=== PATIENT | male | born 1945 | race Caucasian/White ===

== ENCOUNTER 2020-01-24 17:30 | Inpatient (IN) | payer OTHER, MEDICARE ==
[2020-01-24] MEDS ORDERED: SODIUM CHLORIDE 0.9% 1,000 ML IV STA (17:56)
[2020-01-24] MEDS ORDERED: ONDANSETRON 4 MG/2 ML VIAL IVP STA (17:56)
[2020-01-24 18:20] LABS: Basophils % (A) 0 %; Eosinophils # (A) 0.1 k/uL (0-0.7); Eosinophils % (A) 1 %; HCT 37.5 % (39.0-53.0); HGB 12.5 gm/dL (13.0-17.5); Lymphocytes # (A) 1.2 k/uL (1.0-4.8); Lymphocytes % (A) 9 %; MCH 28.8 pg (25.0-35.0); MCHC 33.5 g/dL (31.0-37.0); MCV 86.1 fL (80.0-100.0); Mean Platelet Volume 8.6; Monocytes # (A) 0.4 k/uL (0-1.0); Monocytes % (A) 3 %; Neutrophils % (A) 86 %; Platelet Count 167 k/uL (150-450); RBC 4.35 m/uL (4.30-5.90); WBC 12.9 k/uL (3.8-10.6)
[2020-01-24 18:24] LABS: Amorphous Sediment,Urine Rare /hpf; Appearance,Urine Cloudy (Clear); Bacteria,Urine Rare /hpf; Bilirubin,Urine Negative (Negative); Blood,Urine Small (Negative); Color,Urine Light Yellow; Glucose,Urine (UA) Negative (Negative); Ketones,Urine Negative (Negative); Leukocyte Esterase,Urine Large (Negative); Mucus,Urine Rare /hpf; Nitrite,Urine Negative (Negative); Protein,Urine 1+ (Negative); RBC,Urine 7 /hpf (0-5); Specific Gravity,Urine 1.012 (1.001-1.035); Urobilinogen,Urine <2.0 mg/dL (<2.0); WBC,Urine 23 /hpf (0-5)
[2020-01-24 18:27] LABS: Albumin 4.2 g/dL (3.5-5.0); Calcium 8.4 mg/dL (8.4-10.2); Potassium 4.4 mmol/L (3.5-5.1); Total Bilirubin 0.2 mg/dL (0.2-1.3); Total Protein 7.3 g/dL (6.3-8.2)
--- NOTE | 2020-01-24 18:32 | XR ---
EXAMINATION TYPE: XR KUB DATE OF EXAM: 01/24/2020 COMPARISON: NONE HISTORY: Nausea and vomiting TECHNIQUE: 2 views upright FINDINGS: Bowel gas pattern is normal. There is no sign of intestinal obstruction or pneumoperitoneum . Fecal pattern is normal. There is no evidence of a mass. Sacroiliac joints appear normal. Bony pelv is intact. Lumbar spine appears intact. There are no pathologic calcifications over the kidneys. Lung bases appear clear. IMPRESSION: Nonacute abdomen.
--- NOTE | 2020-01-24 18:34 | ED ---
General Adult HPI - General Chief complaint: Nausea/Vomiting/Diarrhea Stated complaint: Chest pain Time Seen by Provider: 01/24/20 17:45 Source: patient, RN notes reviewed Mode of arrival: wheelchair Limitations: no limitations - History of Present Illness Initial comments: 74-year-old male with a past medical history of CAD, hyperlipidemia, hypertensio n presents to the emergency dept for a chief complaint of nausea vomiting diarrhea. Patient states this has been ongoing on and off for about 10 days. Patient states he had about 12 episodes of diarrhea last night. States he is not able to keep down any water or fluids. Patient actually denies any significant abdominal pain. Patient has no other complaints at this time including shortness of breath, chest pain, abdominal pain, headache, or visual changes. - Related Data Allergies Allergy/AdvReac Type Severity Reaction Status Date / Time adhesive Allergy Rash/Hives Verified 01/24/20 17:44 fluvastatin Allergy Nausea & Verified 01/24/20 17:44 Vomiting Influenza Virus Vaccines Allergy Unknown Verified 01/24/20 17:44 simvastatin [From Zocor] Allergy Nausea & Verified 01/24/20 17:44 Vomiting Review of Systems ROS Statement: Those systems with pertinent positive or pertinent negative responses have been documented in the HPI. ROS Other: All systems not noted in ROS Statement are negative. Past Medical History Past Medical History: Coronary Artery Disease (CAD), Hyperlipidemia, Hypertension History of Any Multi-Drug Resistant Organisms: None Reported Past Surgical History: Coronary Bypass/CABG, Joint Replacement Past Psychological History: PTSD Smoking Status: Former smoker Past Alcohol Use History: None Reported Past Drug Use History: None Reported General Exam Limitations: no limitations General appearance: alert, in no apparent distress Head exam: Present: atraumatic, normocephalic, normal inspection Eye exam: Present: normal appearance, PERRL, EOMI. Absent: scleral icterus, conjunctival injection, periorbital swelling ENT exam: Present: normal exam, mucous membranes moist Neck exam: Present: normal inspection, full ROM. Absent: tenderness, meningismus, lymphadenopathy Respiratory exam: Present: normal lung sounds bilaterally. Absent: respiratory distress, wheezes, rales, rhonchi, stridor Cardiovascular Exam: Present: regular rate, normal rhythm, normal heart sounds. Absent: systolic murmur, diastolic murmur, rubs, gallop, clicks GI/Abdominal exam: Present: soft, normal bowel sounds. Absent: distended, tenderness, guarding, rebound, rigid Neurological exam: Present: alert Course Vital Signs 01/24/20 17:39 Temperature 98.5 F Pulse Rate 100 Respiratory 18 Rate Blood Pressure 103/72 O2 Sat by Pulse 98 Oximetry Medical Decision Making - Medical Decision Making Vitals are stable. Patient is well appearing. CBC is unremarkable however CMP does reveal acute renal failure with a creatinine of 10.83, BUN 112, GFR 4. Lipase 448. Urine and stool culture pending. Patient will be gently rehydrated. Nephrology will be consulted. Patient will be kept in the hospital for further management. - Lab Data Result diagrams: 01/24/20 18:00 01/24/20 18:00 Lab Results 01/24/20 01/24/20 01/24/20 Range/Units 18:00 18:00 18:00 WBC 12.9 H (3.8-10.6) k/uL RBC 4.35 (4.30-5.90) m/uL Hgb 12.5 L (13.0-17.5) gm/dL Hct 37.5 L (39.0-53.0) % MCV 86.1 (80.0-100.0) fL MCH 28.8 (25.0-35.0) pg MCHC 33.5 (31.0-37.0) g/dL RDW 14.0 (11.5-15.5) % Plt Count 167 (150-450) k/uL Neutrophils % 86 % Lymphocytes % 9 % Monocytes % 3 % Eosinophils % 1 % Basophils % 0 % Neutrophils # 11.0 H (1.3-7.7) k/uL Lymphocytes # 1.2 (1.0-4.8) k/uL Monocytes # 0.4 (0-1.0) k/uL Eosinophils # 0.1 (0-0.7) k/uL Basophils # 0.0 (0-0.2) k/uL Sodium 139 (137-145) mmol/L Potassium 4.4 (3.5-5.1) mmol/L Chloride 106 (98-107) mmol/L Carbon Dioxide 13 L (22-30) mmol/L Anion Gap 20 mmol/L BUN 112 H* (9-20) mg/dL Creatinine 10.83 H* (0.66-1.25) mg/dL Est GFR (CKD-EPI)AfAm 5 (>60 ml/min/1.73 sqM) Est GFR (CKD-EPI)NonAf 4 (>60 ml/min/1.73 sqM) Glucose 121 H (74-99) mg/dL Plasma Lactic Acid Aroldo (0.7-2.0) mmol/L Calcium 8.4 (8.4-10.2) mg/dL Total Bilirubin 0.2 (0.2-1.3) mg/dL AST 17 (17-59) U/L ALT 14 (4-49) U/L Alkaline Phosphatase 86 (38-126) U/L Total Protein 7.3 (6.3-8.2) g/dL Albumin 4.2 (3.5-5.0) g/dL Amylase 68 (30-110) U/L Lipase 448 H (23-300) U/L Urine Color Light Yellow Urine Appearance Cloudy (Clear) Urine pH 5.0 (5.0-8.0) Ur Specific Fowler 1.012 (1.001-1.035) Urine Protein 1+ H (Negative) Urine Glucose (UA) Negative (Negative) Urine Ketones Negative (Negative) Urine Blood Small H (Negative) Urine Nitrite Negative (Negative) Urine Bilirubin Negative (Negative) Urine Urobilinogen <2.0 (<2.0) mg/dL Ur Leukocyte Esterase Large H (Negative) Urine RBC 7 H (0-5) /hpf Urine WBC 23 H (0-5) /hpf Amorphous Sediment Rare H (None) /hpf Urine Bacteria Rare H (None) /hpf Urine Mucus Rare H (None) /hpf 01/24/20 Range/Units 18:00 WBC (3.8-10.6) k/uL RBC (4.30-5.90) m/uL Hgb (13.0-17.5) gm/dL Hct (39.0-53.0) % MCV (80.0-100.0) fL MCH (25.0-35.0) pg MCHC (31.0-37.0) g/dL RDW (11.5-15.5) % Plt Count (150-450) k/uL Neutrophils % % Lymphocytes % % Monocytes % % Eosinophils % % Basophils % % Neutrophils # (1.3-7.7) k/uL Lymphocytes # (1.0-4.8) k/uL Monocytes # (0-1.0) k/uL Eosinophils # (0-0.7) k/uL Basophils # (0-0.2) k/uL Sodium (137-145) mmol/L Potassium (3.5-5.1) mmol/L Chloride (98-107) mmol/L Carbon Dioxide (22-30) mmol/L Anion Gap mmol/L BUN (9-20) mg/dL Creatinine (0.66-1.25) mg/dL Est GFR (CKD-EPI)AfAm (>60 ml/min/1.73 sqM) Est GFR (CKD-EPI)NonAf (>60 ml/min/1.73 sqM) Glucose (74-99) mg/dL Plasma Lactic Acid Aroldo 1.0 (0.7-2.0) mmol/L Calcium (8.4-10.2) mg/dL Total Bilirubin (0.2-1.3) mg/dL AST (17-59) U/L ALT (4-49) U/L Alkaline Phosphatase (38-126) U/L Total Protein (6.3-8.2) g/dL Albumin (3.5-5.0) g/dL Amylase (30-110) U/L Lipase (23-300) U/L Urine Color Urine Appearance (Clear) Urine pH (5.0-8.0) Ur Specific Fowler (1.001-1.035) Urine Protein (Negative) Urine Glucose (UA) (Negative) Urine Ketones (Negative) Urine Blood (Negative) Urine Nitrite (Negative) Urine Bilirubin (Negative) Urine Urobilinogen (<2.0) mg/dL Ur Leukocyte Esterase (Negative) Urine RBC (0-5) /hpf Urine WBC (0-5) /hpf Amorphous Sediment (None) /hpf Urine Bacteria (None) /hpf Urine Mucus (None) /hpf Disposition Clinical Impression: Acute renal failure, Elevated lipase, Nausea vomiting and diarrhea Disposition: ADMITTED IP TO THIS HOSP Is patient prescribed a controlled substance at d/c from ED?: No Referrals: Hemanth Christian DO [Primary Care Provider] - 1-2 days Time of Disposition: 19:06
[2020-01-24] MEDS ORDERED: NALOXONE 0.4 MG/ML 1 ML VIAL IV PRN (19:06)
[2020-01-24] MEDS ORDERED: ONDANSETRON 4 MG/2 ML VIAL IVP PRN (19:06)
[2020-01-24] MEDS ORDERED: SODIUM CHLORIDE 0.9% 1,000 ML IV SCH (19:15)
[2020-01-25] MEDS ORDERED: ONDANSETRON 4 MG/2 ML VIAL ONE (01:08)
[2020-01-25] MEDS ORDERED: SODIUM CHLORIDE 0.9% 1,000 ML BAG ONE (01:08)
--- NOTE | 2020-01-25 06:26 | P.HPIM ---
History of Present Illness H&P Date: 01/24/20 Patient is a 74-year-old male with a PMH of coronary artery disease, hypertension, and hyperlipidemia who presented to the ED with complaints of ongoing persistent nausea, vomiting, and diarrhea. The patient reports that for the past 1-2 weeks, he has had the above symptoms and they have been gradually worsening. He reports having 5-6 bowel movements in the past 24 hours with 2-3 episodes of nonbloody and nonbilious emesis. He reports that due to his symptoms, he has been unable to drink or eat much and feels as though he is getting dehydrated. He notes continued production of urine without any changes. Further denied abdominal pain, sick contacts, recent travel. Denied chest pain, shortness of breath, fever, chills, or cough. The patient underwent an extensive evaluation in the emergency room with KUB x-ray unremarkable, laboratory evaluation showing WBC 12.9, hemoglobin 12.5, sodium 139, potassium 4.4, BUN 112, creatinine 10.83, lipase 448, C. diff negative, and CO2 13. Review of Systems Pertinent positives and negatives as discussed in HPI, a complete review of systems was performed and all other systems are negative. Past Medical History Past Medical History: Coronary Artery Disease (CAD), Hyperlipidemia, Hypertension History of Any Multi-Drug Resistant Organisms: None Reported Past Surgical History: Coronary Bypass/CABG, Joint Replacement Additional Past Surgical History / Comment(s): CABG JUN 1991 Past Psychological History: Depression, PTSD Additional Psychological History / Comment(s): situational depression d/t current health and going through chemo Smoking Status: Former smoker Past Alcohol Use History: None Reported Past Drug Use History: None Reported Medications and Allergies Home Medications Medication Instructions Recorded Confirmed Type Aspirin EC [Ecotrin Low Dose] 81 mg PO BID 01/24/20 01/24/20 History Atorvastatin [Lipitor] 10 mg PO HS 01/24/20 01/24/20 History Carvedilol [Coreg] 12.5 mg PO DAILY 01/24/20 01/24/20 History Carvedilol [Coreg] 25 mg PO HS 01/24/20 01/24/20 History Isosorbide Mononitrate ER [Imdur] 60 mg PO DAILY 01/24/20 01/24/20 History Mirtazapine [Remeron] 45 mg PO HS 01/24/20 01/24/20 History clonazePAM 1 mg PO BID PRN 01/24/20 01/24/20 History traZODone HCL 150 mg PO HS 01/24/20 01/24/20 History Allergies Allergy/AdvReac Type Severity Reaction Status Date / Time adhesive Allergy Rash/Hives Verified 01/24/20 20:00 fluvastatin Allergy Nausea & Verified 01/24/20 20:00 Vomiting Influenza Virus Vaccines Allergy Unknown Verified 01/24/20 20:00 simvastatin [From Zocor] Allergy Nausea & Verified 01/24/20 20:00 Vomiting Physical Exam Vitals: Vital Signs Temp Pulse Pulse Resp BP BP Pulse Ox 01/24/20 22:28 18 01/24/20 22:07 98.6 F 82 18 135/72 97 01/24/20 21:00 98.2 F 70 18 131/75 96 01/24/20 19:14 73 18 120/82 96 01/24/20 17:39 98.5 F 100 18 103/72 98 Intake and Output 01/24/20 01/24/20 01/24/20 06:59 14:59 22:59 Other: # Bowel Movements 1 Weight 67.132 kg General: non toxic, no distress, appears at stated age, normal weight Derm: no unusual rashes/lesions no unusual ecchymoses, warm, dry Head: atraumatic, normocephalic, symmetric Eyes: EOMI, no lid lag, anicteric sclera, pupils equal round reactive to light ENT: Nose and ears atraumatic, no thrush, no pharyngeal erythema Neck: No thyromegaly, no cervical lymphadenopathy, trachea midline, supple Mouth: no lip lesion, mucus membranes moist Cardiovascular: S1S2 reg, no murmur, positive posterior tibial pulse bilateral, no edema, capillary refill less than 2 seconds Lungs: CTA bilateral, no rhonchi, no rales , no accessory muscle use Abdominal: soft, nontender to palpation, no guarding, no appreciable organomegaly, normal bowel sounds Ext: no gross muscle atrophy, muscle strength 5 out of 5 in all 4 extremities grossly, no contractures, Neuro: CN II-XI grossly intact, light touch intact all 4 extremities, finger to nose within normal limits, Psych: Alert, oriented, appropriate affect Results CBC & Chem 7: 01/24/20 18:00 01/24/20 18:00 Labs: Abnormal Lab Results - Last 24 Hours (Table) 01/24/20 01/24/20 01/24/20 Range/Units 18:00 18:00 18:00 WBC 12.9 H (3.8-10.6) k/uL Hgb 12.5 L (13.0-17.5) gm/dL Hct 37.5 L (39.0-53.0) % Neutrophils # 11.0 H (1.3-7.7) k/uL Carbon Dioxide 13 L (22-30) mmol/L BUN 112 H* (9-20) mg/dL Creatinine 10.83 H* (0.66-1.25) mg/dL Glucose 121 H (74-99) mg/dL Lipase 448 H (23-300) U/L Urine Protein 1+ H (Negative) Urine Blood Small H (Negative) Ur Leukocyte Esterase Large H (Negative) Urine RBC 7 H (0-5) /hpf Urine WBC 23 H (0-5) /hpf Amorphous Sediment Rare H (None) /hpf Urine Bacteria Rare H (None) /hpf Urine Mucus Rare H (None) /hpf Microbiology - Last 24 Hours (Table) 01/24/20 18:00 Urine Culture - Preliminary Urine,Voided Assessment and Plan Plan: Acute kidney injury, likely secondary to dehydration -Consult nephrology -Continue with IV fluids -Monitor BMP Persistent nausea, vomiting, diarrhea -Possibly secondary to gastroenteritis -Consult GI due to prolonged course -Antiemetics -Clear liquid diet for now Metabolic acidosis -Likely due to ARF -Monitor BMP for now Chronic conditions: CAD, hypertension, hyperlipidemia -Continue home meds DVT prophylaxis -Heparin subq The patient is admitted with an anticipated greater than 2 midnight stay for evaluation of ALINA CODE STATUS: No Code with instructions Discussed with: Patient Anticipated discharge date: 3-[address]: Home A total of 35 minutes was spent on the care of this complex patient more than 50% of the time was spent in counseling and care coordination.
--- NOTE | 2020-01-25 06:27 | P.PN ---
Progress Note - Text Progress Note Date: 01/25/20 Advanced Care Planning Active Diagnosis: Acute kidney injury Persons present: Patient Summary: discussed the patients goals of care and accessory detail. The patient noted that he has previously discussed his wishes with his and other family members, and that at his age, he does not wish to undergo any heroic measures if his health deteriorates significantly. He notes that in the event of cardiac arrest, he does not wish to undergo CPR or be placed on life support with the ventilator. He notes that he may consider other forms of life support electively such as dialysis or feeding tubes if need be. Discussed the different forms of light support with the patient. Will make the patient no code with instructions. Time spent: Total time spent face to face in education and discussion directly related to advanced care plannin minutes
[2020-01-25] MEDS ORDERED: SODIUM CHLORIDE 0.9% 1,000 ML IV ONE (07:28)
[2020-01-25] MEDS ORDERED: DEXTROSE 5% IN WATER 100 ML with AMIODARONE 150 MG IV ONE ×2 (07:37→07:40)
[2020-01-25] MEDS ORDERED: AMIODARONE 360 MG in DEXTROSE 5% IN WATER 200 ML IV ONE ×2 (07:40)
[2020-01-25 07:49] LABS: HCT 35.7 % (39.0-53.0); HGB 11.7 gm/dL (13.0-17.5); MCH 28.8 pg (25.0-35.0); MCHC 32.7 g/dL (31.0-37.0); Mean Platelet Volume 8.2; Platelet Count 140 k/uL (150-450); RBC 4.05 m/uL (4.30-5.90); WBC 11.3 k/uL (3.8-10.6)
[2020-01-25 08:01] LABS: Calcium 8.2 mg/dL (8.4-10.2); Magnesium 1.9 mg/dL (1.6-2.3)
[2020-01-25 08:01] LABS: Glucose,Whole Blood 111 mg/dL (75-99)
[2020-01-25] MEDS ORDERED: PROCHLORPERAZINE SUPPOSITORY 25 MG SUPP RECTAL PRN (08:12)
[2020-01-25] MEDS ORDERED: MAGNESIUM SULFATE-D5W PMX 1 GM in DEXTROSE/WATER 1 100ML.BAG IVPB ONE (08:20)
[2020-01-25] MEDS: ONDANSETRON 4 MG/2 ML VIAL IVP SCH (08:27)
[2020-01-25] MEDS ORDERED: ASPIRIN 81 MG PO SCH (09:00)
[2020-01-25] MEDS ORDERED: CARVEDILOL 12.5 MG TAB PO SCH (09:00)
[2020-01-25 09:20] LABS: Troponin I 0.049 ng/mL (0.000-0.034)
--- NOTE | 2020-01-25 10:19 | P.NPCON ---
History of Present Illness - Reason for Consult acute renal failure - History of Present Illness Reason for consultation: Acute kidney injury History of present illness: Patient is a 74-year-old male seen in renal consultation for acute kidney injury. Creatinine was 10.8 on admission and is 10.5 with this morning. Unknown baseline renal function. Patient denies any history of kidney disease. He is currently awake and alert. Patient presented to the hospital with vomiting and diarrhea going on for the last 10 days. Patient states he's been having multiple episodes of vomiting and diarrhea. Denies melena or hematochezia. He has been voiding. Denies hematuria or dysuria. Denies regular use of nonsteroidals. Patient states his is ill and is maintained on chemotherapy. He denies any travel. C. diff negative. Blood pressure has been fairly stable. He is not on any vasopressors. He is currently receiving third liter of normal saline bolus. He is also maintained on normal saline at 1 25 mL an hour for maintenance fluids. Earlier this morning he had a short run of V. tach which spontaneously resolved. Vital signs are stable. General: The patient appeared well nourished and normally developed. HEENT: Head exam is unremarkable. Neck is without jugular venous distension. LUNGS: Lungs are clear to auscultation and percussion. Breath sounds decreased. HEART: Rate and Rhythm are regular. ABDOMEN: Soft, nontender. No distention noted. EXTREMITITES: No clubbing, cyanosis, or edema. Past Medical History Past Medical History: Coronary Artery Disease (CAD), Hyperlipidemia, Hypertension History of Any Multi-Drug Resistant Organisms: None Reported Past Surgical History: Coronary Bypass/CABG, Joint Replacement Additional Past Surgical History / Comment(s): CABG JUN 1991 Past Psychological History: Depression, PTSD Additional Psychological History / Comment(s): situational depression d/t current health and going through chemo Smoking Status: Former smoker Past Alcohol Use History: None Reported Past Drug Use History: None Reported Medications and Allergies Home Medications Medication Instructions Recorded Confirmed Type Aspirin EC [Ecotrin Low Dose] 81 mg PO BID 01/24/20 01/24/20 History Atorvastatin [Lipitor] 10 mg PO HS 01/24/20 01/24/20 History Carvedilol [Coreg] 12.5 mg PO DAILY 01/24/20 01/24/20 History Carvedilol [Coreg] 25 mg PO HS 01/24/20 01/24/20 History Isosorbide Mononitrate ER [Imdur] 60 mg PO DAILY 01/24/20 01/24/20 History Mirtazapine [Remeron] 45 mg PO HS 01/24/20 01/24/20 History clonazePAM 1 mg PO BID PRN 01/24/20 01/24/20 History traZODone HCL 150 mg PO HS 01/24/20 01/24/20 History Allergies Allergy/AdvReac Type Severity Reaction Status Date / Time adhesive Allergy Rash/Hives Verified 01/24/20 20:00 fluvastatin Allergy Nausea & Verified 01/24/20 20:00 Vomiting Influenza Virus Vaccines Allergy Unknown Verified 01/24/20 20:00 simvastatin [From Zocor] Allergy Nausea & Verified 01/24/20 20:00 Vomiting Physical Exam Vitals: Vital Signs Temp Pulse Pulse Resp BP BP Pulse Ox 01/25/20 07:00 98.1 F 167 H 18 99/65 96 01/25/20 04:00 18 01/25/20 02:14 98.2 F 74 18 132/75 96 01/24/20 22:28 18 01/24/20 22:07 98.6 F 82 18 135/72 97 01/24/20 21:00 98.2 F 70 18 131/75 96 01/24/20 19:14 73 18 120/82 96 01/24/20 17:39 98.5 F 100 18 103/72 98 Intake and Output 01/24/20 01/25/20 01/25/20 22:59 06:59 14:59 Other: # Voids 1 # Bowel Movements 1 5 Weight 67.132 kg Results - Lab Results Most recent lab results Calcium 8.2 mg/dL (8.4-10.2) L 01/25/20 06:54 Magnesium 1.9 mg/dL (1.6-2.3) 01/25/20 06:54 01/25/20 06:54 01/25/20 06:54 Assessment and Plan Plan: Assessment: 1. Acute kidney injury secondary to ATN secondary to severe intravascular volume depletion secondary to vomiting and diarrhea. Creatinine 10.83 on admission and is 10.58 today. 2. Metabolic acidosis secondary to acute kidney injury and GI losses. 3. Nausea vomiting and diarrhea. Possibly gastroenteritis. Patient states he does not want to undergo endoscopy. GI consulted. Plan: Discontinue normal saline. Start isotonic bicarbonate drip to be run at 100 mL an hour. Strict I's and O's. Check renal ultrasound. Continue to assess daily for need for renal replacement therapy. Thank you for the consultation. I will continue to follow the patient with you during his hospital stay.
[2020-01-25] MEDS: DEXTROSE 5% IN WATER 1,000 ML with SODIUM BICARB (1 MEQ/ML) 150 ML IV SCH (12:14)
[2020-01-25] MEDS: PANTOPRAZOLE 40 MG/10 ML VIAL IVP SCH ×2 (12:14→20:36)
[2020-01-25] MEDS: HEPARIN SODIUM,PORCINE 5,000 UNIT/ML 1 ML VIAL SQ SCH ×2 (12:14→16:27)
[2020-01-25] MEDS: ISOSORBIDE MONONITRATE ER 60 MG TAB.ER.24H PO SCH (12:24)
[2020-01-25] MEDS: clonazePAM 1 MG TAB PO PRN (12:32)
[2020-01-25] MEDS: PROCHLORPERAZINE 5 MG TAB PO PRN ×2 (12:51→20:36)
[2020-01-25] MEDS ORDERED: AMIODARONE 300 MG in DEXTROSE 5% IN WATER 250 ML IV SCH ×2 (13:42)
--- NOTE | 2020-01-25 13:42 | US ---
EXAMINATION TYPE: US kidneys/renal and bladder DATE OF EXAM: 01/25/2020 COMPARISON: NONE CLINICAL HISTORY: 74-year-old male ALINA TECHNIQUE: Multiple sonographic images of the kidneys and bladder are obtained. FINDINGS: EXAM MEASUREMENTS: Right Kidney: 10.3 x 4.3 x 4.5 cm Left Kidney: 11.2 x 5.3 x 5.0 cm Right Kidney: Multiple echogenic areas with shadowing scattered throughout the pyramids Left Kidney: Multiple echogenic areas with shadowing scattered throughout the pyramids Cyst medial= 2.9 x 2.7 x 2.6 cm No hydronephrosis seen on either side. Bladder: No gross abnormality. Enlarged prostate gland at 5.5 x 5.0 cm. Bilateral Jets seen: No IMPRESSION: 1. No hydronephrosis. 2. 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 Differential considerations include hyperparathyroi dism, medullary sponge kidney, type I RTA, sarcoidosis, hyperthyroidism/hypothyroidism, and other pat hologic hypercalcemic or hypercalcemic states. 3. Prostatomegaly at 5.5 x 5.0 cm.
--- NOTE | 2020-01-25 14:23 | CONS ---
CONSULTATION Mr. Stiles is a 74-year-old male with known history of hyperlipidemia, history of coronary artery disease status post coronary artery bypass grafting over 15 years ago, who has been seen by Dr. Deanne Parr in the past but not for the last few years, who presented with nausea and vomiting and diarrhea, going on for about a week, came in and was found to have evidence of severe renal failure. Cardiology consultation was requested today because of arrhythmia. The patient did not feel his arrhythmia. According to him, he has done well from the cardiac standpoint, has not been active recently, but denying any chest pain or change in his breathing. He denies any dizziness or palpitation. He did not feel any arrhythmia this morning. No PND. No orthopnea. No peripheral edema. His arrhythmia resolved without any cardioversion. His coronary risk factors include hypertension, hyperlipidemia. He is on Lipitor 10 mg daily, Coreg 25 at night 12.5 in the morning, isosorbide mononitrate, Remeron, trazodone, and aspirin once a day. REVIEW OF SYSTEMS: RESPIRATORY SYSTEM: He denies any cough or fever. He denies any history of documented asthma, emphysema, bronchitis. GI SYSTEM: He has the nausea and the vomiting and the diarrhea. He has no GI bleeding. SYSTEM: No dysuria or hematuria. NERVOUS SYSTEM: No stroke or seizure. He denies any prior myocardial infarction, prior to his coronary bypass grafting that was done in [place]. PHYSICAL EXAMINATION: A 74-year-old male, alert, oriented, in no apparent distress. Heart rate in the 70s. Blood pressure 130/70. HEAD: Normocephalic. EYES: Sclerae nonicteric. NECK: Good upstroke. no bruit, no jugular venous distention. LUNGS: Clear to auscultation. HEART: Regular rate and rhythm, S1, S2. No S3 with systolic murmur at the base. No diastolic murmur, no rub. ABDOMEN: Soft, nontender, positive bowel sounds, no organomegaly. EXTREMITIES: No edema, intact pulses. LAB DATA: Revealed a BUN of 112, creatinine of 10.83, potassium 4.4, bicarb of 13, hemoglobin of 12.5. Troponin 0.049. EKG showed tachycardia, appears to be AV yamilet reentrant tachycardia with retrograde P waves and subsequently converted to sinus mechanism. IMPRESSION: 1. 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 2. Acute kidney injury, most likely related to severe intravascular depletion with metabolic acidosis. 3. Status post coronary artery bypass grafting. Patient denies any recent anginal pain. 4. Hyperlipidemia. 5. Hypertension. RECOMMENDATION: I have discussed with the patient the option of obtaining echocardiogram. He does not want to have any testing done, not even an echocardiogram. I will continue the present therapy. I believe that the elevation of his troponin most likely is related to his renal failure. Will further evaluate the symptoms and guide his treatment at this time. The option is quite limited. The patient declined any further workup. Thank you for this consult. Will follow with you. MMODL / IJN: [id number] /
[2020-01-25] MEDS: CARVEDILOL 12.5 MG TAB PO SCH (16:30)
--- NOTE | 2020-01-25 16:47 | P.PN ---
Subjective Progress Note Date: 01/25/20 Principal diagnosis: SVT Received a call from nursing regarding hypotension and elevated heart rate. EKG was performed and patient was given 1 L bolus. EKG appeared to show wide- complex tachycardia. Patient converted back to sinus rhythm while being transferred to the ICU. Amiodarone was initially ordered but was discontinued after patient converted back to sinus rhythm. Patient denied any symptoms at that time. He denied any dizziness, chest pain, shortness of breath or palpitations. Objective - Vital Signs Vital signs: Vital Signs Temp 98.6 F 01/25/20 12:00 Pulse 68 01/25/20 12:00 Resp 12 01/25/20 12:00 BP 139/84 01/25/20 12:00 Pulse Ox 98 01/25/20 12:00 Intake & Output 01/24/20 01/25/20 01/25/20 18:59 06:59 18:59 Intake Total 200 Output Total 450 Balance -250 Weight 67.132 kg 67.132 kg Intake: IV 200 Dextrose 5% in Water 1, 100 000 ml @ 100 mls/hr IV . [id number] JORGE with Sodium Bicarb (1 Meq/ml) 150 ml Rx#:[id number] Magnesium Sulfate-D5w Pmx 100 1 gm In Dextrose/Water 1 100ml.bag @ 100 mls/hr IVPB ONCE ONE Rx#: [id number] Output: Urine 150 Stool 300 Other: Voiding Method Toilet Urinal # Voids 1 1 # Bowel Movements 5 1 - Exam General: [non toxic, cachectic], [no distress], [appears at stated age] Derm: [warm], [dry] Head: [atraumatic], [normocephalic], [symmetric] Eyes: [EOMI], [no lid lag], [anicteric sclera] Mouth: [no lip lesion], [mucus membranes moist] Cardiovascular: [S1S2 reg], [no murmur], [positive DP pulse bilateral], Lungs: [CTA bilateral], [no rhonchi, no rales] , [no accessory muscle use] Abdominal: [soft], [ nontender to palpation], [no guarding], [no appreciable organomegaly] Ext: [no gross muscle atrophy], [no edema], [no contractures] Neuro: [no focal neuro deficits] Psych: [Alert], [oriented], [appropriate affect] - Labs CBC & Chem 7: 01/25/20 06:54 01/25/20 06:54 Labs: Abnormal Lab Results - Last 24 Hours (Table) 01/24/20 01/24/20 01/24/20 Range/Units 18:00 18:00 18:00 WBC 12.9 H (3.8-10.6) k/uL RBC (4.30-5.90) m/uL Hgb 12.5 L (13.0-17.5) gm/dL Hct 37.5 L (39.0-53.0) % Plt Count (150-450) k/uL Neutrophils # 11.0 H (1.3-7.7) k/uL Chloride (98-107) mmol/L Carbon Dioxide 13 L (22-30) mmol/L BUN 112 H* (9-20) mg/dL Creatinine 10.83 H* (0.66-1.25) mg/dL Glucose 121 H (74-99) mg/dL POC Glucose (mg/dL) (75-99) mg/dL Calcium (8.4-10.2) mg/dL Troponin I (0.000-0.034) ng/mL Lipase 448 H (23-300) U/L Urine Protein 1+ H (Negative) Urine Blood Small H (Negative) Ur Leukocyte Esterase Large H (Negative) Urine RBC 7 H (0-5) /hpf Urine WBC 23 H (0-5) /hpf Amorphous Sediment Rare H (None) /hpf Urine Bacteria Rare H (None) /hpf Urine Mucus Rare H (None) /hpf 01/25/20 01/25/20 01/25/20 Range/Units 06:54 06:54 06:54 WBC 11.3 H (3.8-10.6) k/uL RBC 4.05 L (4.30-5.90) m/uL Hgb 11.7 L (13.0-17.5) gm/dL Hct 35.7 L (39.0-53.0) % Plt Count 140 L (150-450) k/uL Neutrophils # (1.3-7.7) k/uL Chloride 111 H (98-107) mmol/L Carbon Dioxide 14 L (22-30) mmol/L BUN 109 H* (9-20) mg/dL Creatinine 10.58 H* (0.66-1.25) mg/dL Glucose 112 H (74-99) mg/dL POC Glucose (mg/dL) (75-99) mg/dL Calcium 8.2 L (8.4-10.2) mg/dL Troponin I 0.049 H* (0.000-0.034) ng/mL Lipase (23-300) U/L Urine Protein (Negative) Urine Blood (Negative) Ur Leukocyte Esterase (Negative) Urine RBC (0-5) /hpf Urine WBC (0-5) /hpf Amorphous Sediment (None) /hpf Urine Bacteria (None) /hpf Urine Mucus (None) /hpf 01/25/20 Range/Units 07:59 WBC (3.8-10.6) k/uL RBC (4.30-5.90) m/uL Hgb (13.0-17.5) gm/dL Hct (39.0-53.0) % Plt Count (150-450) k/uL Neutrophils # (1.3-7.7) k/uL Chloride (98-107) mmol/L Carbon Dioxide (22-30) mmol/L BUN (9-20) mg/dL Creatinine (0.66-1.25) mg/dL Glucose (74-99) mg/dL POC Glucose (mg/dL) 111 H (75-99) mg/dL Calcium (8.4-10.2) mg/dL Troponin I (0.000-0.034) ng/mL Lipase (23-300) U/L Urine Protein (Negative) Urine Blood (Negative) Ur Leukocyte Esterase (Negative) Urine RBC (0-5) /hpf Urine WBC (0-5) /hpf Amorphous Sediment (None) /hpf Urine Bacteria (None) /hpf Urine Mucus (None) /hpf Microbiology - Last 24 Hours (Table) 01/24/20 21:00 Stool Culture - Preliminary Stool 01/24/20 18:00 Urine Culture - Preliminary Urine,Voided Assessment and Plan Assessment: SVT Troponin elevation with history of CAD Acute kidney injury with hyperchloremic metabolic acidosis Persistent nausea, vomiting and diarrhea Leukocytosis Chronic conditions: hypertension and dyslipidemia Patient was noted to be in SVT this morning which resolved with 1 L bolus. Magnesium was 1.9. Potassium was 5. Plans: Telemetry monitoring. Monitor for QTC given use of Zofran. Cardiology evaluated the patient, patient refusing further workup and management. Troponin is 0.094. This is likely demand ischemia from SVT. Plans: Telemetry monitoring. Continue aspirin and Lipitor. Continue Coreg. Repeat troponin/EKG to rule out ACS. Chloride of 111, bicarbonate of 14. BUN is 109, creatinine 10.58. Likely prer enal given history of nausea, vomiting and diarrhea. Plans: Avoid nephrotoxins. Renal diet. Repeat BMP tomorrow morning. Patient started on isotonic bicarbonate drip by nephrology. Plans for renal ultrasound. Follow nephrology recommendations. Plans: GI has been consulted for patient's persistent nausea vomiting and diarrhea. Stool culture, stool for Calprotectin and lactoferrin ordered. Zofran as needed for nausea or vomiting while monitoring QTC. Leukocytosis of 11.3. This is of unknown significance. Patient has no signs of infection at this time. Plans: Repeat CBC tomorrow morning. Monitor for any fevers. His blood pressure is within normal limits on Coreg and Imdur. Lipitor has been restarted for dyslipidemia. [Patient found to be in SVT this morning, transfer to [facility], spontaneously resolved with 1 L bolus. Cardiology consulted. GI consulted for persistent sailaja sea, vomiting and diarrhea. His kidney function continues to be severely decreased, nephrology on board. Patient is pending clinical improvement. Likely DC in 2-3 days.
--- NOTE | 2020-01-25 20:20 | CONS ---
CONSULTATION DATE OF DICTATION: 01/25/2020 REASON FOR CONSULTATION: Nausea, vomiting and diarrhea of 2 weeks' duration. HISTORY OF PRESENT ILLNESS: The patient is a 74-year-old pleasant white male with history of hypertension, hyperlipidemia and coronary artery disease who presented to the emergency room with severe nausea, vomiting, diarrhea for the last 10 days' duration. He was having bowel movements anywhere from 10-15 a day which are loose to watery in consistency with no blood or mucus in the stool. He denies any associated abdominal pain. He had several episodes of nausea and vomiting, which were worse a week ago. He came to the emergency room and was noted to have acute kidney injury with a BUN of 112 and creatinine of 10.83. He denies any antibiotic use. He denies any new medications that were started recently. Denies any recent travel history. No recent antibiotic use. Stool studies for C difficile are negative. Rest of the labs are still pending. He never had a colonoscopy in the past. PAST MEDICAL HISTORY: Past medical history is significant for coronary artery disease, hypertension, hyperlipidemia. PAST SURGICAL HISTORY: CABG. SOCIAL HISTORY: Former smoker. No alcohol use. FAMILY HISTORY: Unremarkable. HOME MEDICATIONS: Aspirin, Lipitor, Coreg, Imdur, Remeron, clonazepam, trazodone. ALLERGIES: LOVASTATIN, FLU VACCINE, ZOCOR. REVIEW OF SYSTEMS: CARDIOPULMONARY: No chest pain or shortness of breath. GENITOURINARY: No dysuria or hematuria. MUSCULOSKELETAL: Unremarkable. SKIN: Unremarkable. ENDOCRINE: Unremarkable. PSYCHIATRIC: Unremarkable. NEUROLOGY: Unremarkable. ENT/VISION: Unremarkable. CONSTITUTIONAL: Weight loss of 10 to 15 pounds. No fever, chills, night sweats. PHYSICAL EXAMINATION: He appears comfortable. No apparent distress. Vital signs are stable. Blood pressure is 119/68, pulse rate 63, temperature 98.3. HEENT examination unremarkable. Conjunctivae pink. Sclerae anicteric. Oral cavity no lesions. NECK: No JVD or lymph node enlargement. CHEST: Clear to auscultation. HEART: Regular rate and rhythm. ABDOMEN: Soft. Bowel sounds are positive. No organomegaly. EXTREMITIES: No pedal edema. SKIN: No rashes. NEUROLOGIC: Alert and oriented x3. No focal deficits. LABS: Labs from yesterday showed WBC 12.9, hemoglobin 12.5, platelets normal. BUN 110 and creatinine 10.82. AST, ALT, T-bilirubin, alkaline phosphatase normal. Lipase is 448. Stool for C difficile toxin is negative. IMPRESSION: 1. Severe nausea, vomiting and diarrhea of 2 weeks' duration. He has been having bowel movements anywhere from 10-15 a day which are loose to watery in consistency with no blood or mucus in the stool. He denies any recent antibiotic use. No recent travel history. No new medications that were started recently. Most likely we are dealing with infectious etiology, but other causes cannot be excluded. 2. Acute kidney injury. 3. History of coronary artery disease, status post coronary artery bypass grafting several years ago. 4. History of hypertension and hyperlipidemia. RECOMMENDATIONS: 1. Await the rest of the stool studies. 2. Requested fecal calprotectin and fecal lactoferrin. 3. Monitor BUN and creatinine closely. 4. If the diarrhea does not improve, will consider a colonoscopy. I discussed this with the patient, but at this time he refuses to have this done. For now we will follow with you closely. Thank you for this consultation. MMABELL / IJN: [id number] /
[2020-01-25] MEDS: ATORVASTATIN 40 MG TAB PO SCH (20:37)
[2020-01-25] MEDS ORDERED: ATORVASTATIN 10 MG TAB PO SCH (21:00)
[2020-01-26] MEDS: ONDANSETRON 4 MG/2 ML VIAL IVP SCH ×3 (00:30→16:17)
[2020-01-26] MEDS: HEPARIN SODIUM,PORCINE 5,000 UNIT/ML 1 ML VIAL SQ SCH ×3 (00:30→16:16)
[2020-01-26] MEDS: DEXTROSE 5% IN WATER 1,000 ML with SODIUM BICARB (1 MEQ/ML) 150 ML IV SCH ×4 (02:46→21:39)
[2020-01-26 05:33] LABS: HCT 30.8 % (39.0-53.0); HGB 10.3 gm/dL (13.0-17.5); MCHC 33.5 g/dL (31.0-37.0); MCV 86.5 fL (80.0-100.0); Mean Platelet Volume 8.2; Platelet Count 120 k/uL (150-450); RBC 3.56 m/uL (4.30-5.90); RDW 14.2 % (11.5-15.5); WBC 10.4 k/uL (3.8-10.6)
[2020-01-26 05:52] LABS: Calcium 8.2 mg/dL (8.4-10.2); Potassium 3.6 mmol/L (3.5-5.1)
[2020-01-26] MEDS ORDERED: Potassium Replacement Protocol 1 EACH MISC MISCELLANE PRN (06:40)
[2020-01-26] MEDS: CARVEDILOL 12.5 MG TAB PO SCH ×2 (06:56→17:05)
[2020-01-26] MEDS ORDERED: POTASSIUM CHLORIDE ER 20 MEQ TAB.ER PO SCH (07:00)
--- NOTE | 2020-01-26 07:39 | PN ---
PROGRESS NOTE Mr. Stiles is a 74-year-old male with known history of coronary artery disease, status post coronary artery bypass grafting who presented with progressive nausea and vomiting and diarrhea, was noted to have severe renal failure. He had an episode of tachycardia. He feels better today. According to him, he had a good night's sleep. He had no chest pain. His breathing has been stable. He denies any dizziness or palpitation. He denies any nausea. He has no further episode of tachy arrhythmia. He continues to be at this time on aspirin 81 mg daily, Lipitor 40 mg daily, Coreg 12.5 mg twice a day, isosorbide mononitrate 60 mg daily. PHYSICAL EXAMINATION: Blood pressure 127/60 with the heart rate in the 50s. LUNGS: Clear. HEART: Regular rate and rhythm. S1, S2. No S3 with a systolic murmur. No diastolic murmur. ABDOMEN: Soft. Nontender. Positive bowel sounds. No organomegaly. EXTREMITIES: No edema. LAB DATA: Lab data revealed a BUN and creatinine of 104 and 9.49, mildly improved compared to yesterday. His potassium is down to 3.6. Hemoglobin of 10.3. His troponin is up to 11.4. IMPRESSION: 1. [id number] elevation myocardial infarction. The patient had no symptoms of chest discomfort. 2. Acute kidney injury related to the nausea and vomiting and the diarrhea with mild improvement. 3. Status post coronary artery bypass grafting. 4. Episode of supraventricular tachycardia, stable. 5. Hyperlipidemia. 6. Hypertension. RECOMMENDATION: Patient is adamantly refusing any testing including an echocardiogram. I will continue on his present medical regimen. We will follow his hemoglobin and if he is stable, I will add Plavix to his regimen. Depending on his progress, further recommendation will be made. MMODL / IJN: [id number] /
[2020-01-26] MEDS: ASPIRIN 81 MG PO SCH (09:28)
[2020-01-26] MEDS: ISOSORBIDE MONONITRATE ER 60 MG TAB.ER.24H PO SCH (09:28)
[2020-01-26] MEDS: PANTOPRAZOLE 40 MG/10 ML VIAL IVP SCH ×2 (09:28→21:33)
--- NOTE | 2020-01-26 11:17 | P.PN ---
Subjective Progress Note Date: 01/26/20 Principal diagnosis: SVT Patient was seen and examined. No acute events overnight. Patient is currently sinus rhythm. Creatinine slightly improving from 10.58 9.49. Troponin bumped up from 0.049-11.4. Patient denies any chest pain, shortness of breath or palpitations. Refusing any cardiac intervention including cardiac cath and echocardiogram. Patient appears alert and oriented 3 and is aware of the risks of refusing intervention. He denies any nausea or vomiting. Bowel movement today, more formed stool prior to admission. Objective - Vital Signs Vital signs: Vital Signs Temp 98.1 F 01/26/20 08:45 Pulse 56 L 01/26/20 08:00 Resp 17 01/26/20 08:45 BP 124/67 01/26/20 08:00 Pulse Ox 94 L 01/26/20 08:45 Intake & Output 01/25/20 01/26/20 01/26/20 18:59 06:59 18:59 Intake Total 600 800 200 Output Total 650 525 450 Balance -50 275 -250 Weight 70.5 kg Intake: IV 600 800 200 Dextrose 5% in Water 1, 500 800 200 000 ml @ 100 mls/hr IV . [id number] JORGE with Sodium Bicarb (1 Meq/ml) 150 ml Rx#:[id number] Magnesium Sulfate-D5w Pmx 100 1 gm In Dextrose/Water 1 100ml.bag @ 100 mls/hr IVPB ONCE ONE Rx#: [id number] Output: Urine 350 525 150 Stool 300 300 Other: Voiding Method Toilet Toilet Toilet Urinal Urinal Urinal # Voids 1 # Bowel Movements 1 - Exam General: [non toxic, cachectic], [no distress], [appears at stated age] Derm: [warm], [dry] Head: [atraumatic], [normocephalic], [symmetric] Eyes: [EOMI], [no lid lag], [anicteric sclera] Mouth: [no lip lesion], [mucus membranes moist] Cardiovascular: [S1S2 reg], [no murmur], [positive DP pulse bilateral], Lungs: [CTA bilateral], [no rhonchi, no rales] , [no accessory muscle use] Abdominal: [soft], [ nontender to palpation], [no guarding], [no appreciable organomegaly] Ext: [no gross muscle atrophy], [no edema], [no contractures] Neuro: [no focal neuro deficits] Psych: [Alert], [oriented], [appropriate affect] - Labs CBC & Chem 7: 01/26/20 04:18 01/26/20 04:18 Labs: Abnormal Lab Results - Last 24 Hours (Table) 01/26/20 01/26/20 01/26/20 Range/Units 04:18 04:18 04:18 RBC 3.56 L (4.30-5.90) m/uL Hgb 10.3 L (13.0-17.5) gm/dL Hct 30.8 L (39.0-53.0) % Plt Count 120 L (150-450) k/uL Carbon Dioxide 17 L (22-30) mmol/L BUN 104 H* (9-20) mg/dL Creatinine 9.49 H* (0.66-1.25) mg/dL Glucose 121 H (74-99) mg/dL Calcium 8.2 L (8.4-10.2) mg/dL Troponin I 11.400 H* (0.000-0.034) ng/mL Microbiology - Last 24 Hours (Table) 01/24/20 18:00 Urine Culture - Final Urine,Voided Assessment and Plan Assessment: Non-ST elevation NV with history of CAD Acute kidney injury with hyperchloremic metabolic acidosis Persistent nausea, vomiting and diarrhea Resolved: SVT, Leukocytosis Chronic conditions: hypertension and dyslipidemia Troponin is 0.094, 11.4. Non-ST elevation NV. Plans: Telemetry monitoring. Continue aspirin and Lipitor. Continue Coreg. Patient refusing echocardiogram and cardiac catheterization. Plans to add Plavix if hemoglobin stable. Bicarbonate of 17. BUN is 104, creatinine 9.49. Likely prerenal given history of nausea, vomiting and diarrhea. 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 Plans: Avoid nephrotoxins. Renal diet. Repeat BMP tomorrow morning. Patient started on isotonic bicarbonate drip by nephrology. Patient refuses dialysis. Follow nephrology recommendations. Plans: GI has been consulted for patient's persistent nausea vomiting and diarrhea. Stool culture, stool for Calprotectin and lactoferrin ordered. Zofran as needed for nausea or vomiting while monitoring QTC. Patient refusing any endoscopic procedures. His blood pressure is within normal limits on Coreg and Imdur. Lipitor has been restarted for dyslipidemia. [Patient with non-ST elevation NV, refusing intervention. Refusing dialysis for renal failure. Refusing endoscopy for persistent nausea vomiting and diarrhea. He is pending clinical improvement. Likely DC in 1-2 days.]
--- NOTE | 2020-01-26 11:21 | P.PN ---
Subjective Patient is seen in follow for acute kidney injury. Unknown baseline renal function. No significant improvement in renal function. Urine output 525 mL overnight. He is currently maintained on bicarb drip. No vomiting or diarrhea. Vital signs are stable. General: The patient appeared well nourished and normally developed. HEENT: Head exam is unremarkable. Neck is without jugular venous distension. LUNGS: Lungs are clear to auscultation and percussion. Breath sounds decreased. HEART: Rate and Rhythm are regular. ABDOMEN: Soft, nontender. EXTREMITITES: No edema. Objective - Vital Signs Vital signs: Vital Signs Temp 98.1 F 01/26/20 08:45 Pulse 56 L 01/26/20 08:00 Resp 17 01/26/20 08:45 BP 124/67 01/26/20 08:00 Pulse Ox 94 L 01/26/20 08:45 Intake & Output 01/25/20 01/26/20 01/26/20 18:59 06:59 18:59 Intake Total 600 800 200 Output Total 650 525 450 Balance -50 275 -250 Weight 70.5 kg Intake: IV 600 800 200 Dextrose 5% in Water 1, 500 800 200 000 ml @ 100 mls/hr IV . [id number] JORGE with Sodium Bicarb (1 Meq/ml) 150 ml Rx#:[id number] Magnesium Sulfate-D5w Pmx 100 1 gm In Dextrose/Water 1 100ml.bag @ 100 mls/hr IVPB ONCE ONE Rx#: [id number] Output: Urine 350 525 150 Stool 300 300 Other: Voiding Method Toilet Toilet Toilet Urinal Urinal Urinal # Voids 1 # Bowel Movements 1 - Labs CBC & Chem 7: 01/26/20 04:18 01/26/20 04:18 Labs: Abnormal Lab Results - Last 24 Hours (Table) 01/26/20 01/26/20 01/26/20 Range/Units 04:18 04:18 04:18 RBC 3.56 L (4.30-5.90) m/uL Hgb 10.3 L (13.0-17.5) gm/dL Hct 30.8 L (39.0-53.0) % Plt Count 120 L (150-450) k/uL Carbon Dioxide 17 L (22-30) mmol/L BUN 104 H* (9-20) mg/dL Creatinine 9.49 H* (0.66-1.25) mg/dL Glucose 121 H (74-99) mg/dL Calcium 8.2 L (8.4-10.2) mg/dL Troponin I 11.400 H* (0.000-0.034) ng/mL Microbiology - Last 24 Hours (Table) 01/24/20 18:00 Urine Culture - Final Urine,Voided Assessment and Plan Plan: Assessment: 1. Acute kidney injury secondary to ATN secondary to severe intravascular volume depletion secondary to vomiting and diarrhea. Creatinine 10.83 on admission and is 9.49 today. Unknown baseline renal function. Nonoliguric. No hydronephrosis noted on kidney ultrasound. 2. Metabolic acidosis secondary to acute kidney injury and GI losses. Improving. 3. Nausea vomiting and diarrhea. Possibly gastroenteritis. Patient states he does not want to undergo endoscopy. GI following. C. diff negative. 4. Medullary nephrocalcinosis. Patient denies any history of UTIs or kidney stones which would be seen in medullary sponge kidney. Calcium level not elevated. Monitor. Plan: Continue isotonic bicarbonate drip to be run at 100 mL an hour. Strict I's and O's. I did discuss with the patient be potential need to initiate renal replacement therapy due to no improvement in his renal function. Currently refusing. Continue to assess daily.
--- NOTE | 2020-01-26 18:08 | PN ---
PROGRESS NOTE DATE OF DICTATION: 01/26/2020 This patient is a 74-year-old pleasant white male admitted to the hospital with acute onset of severe nausea, vomiting, diarrhea for the last 10 days' duration. He was noted to have acute kidney injury with renal failure and presently remains in the intensive care unit. He did have stool studies and they so far have been negative. Since being in the hospital, the diarrhea has significantly improved. He had only one bowel movement today and it was soft in consistency. The nausea and vomiting resolved. On a renal diet, tolerating well. PHYSICAL EXAMINATION: He appears comfortable. No apparent distress. VITAL SIGNS: Stable. Blood pressure is 133/74, pulse rate 60, temperature 97.8. HEENT examination unremarkable. Conjunctivae pink. Sclerae anicteric. Oral cavity no lesions. NECK: No JVD or lymph node enlargement. CHEST: Clear to auscultation. HEART: Regular rate and rhythm. ABDOMEN: Soft. Bowel sounds are positive. No organomegaly. EXTREMITIES: No pedal edema. SKIN: No rashes. NEUROLOGIC: Alert and oriented x3. No focal deficits. LABS: WBC 10.4, hemoglobin 10.3, platelets 120. BUN 104, creatinine 9.49. Stool lactoferrin negative. C difficile negative. Cultures still pending. IMPRESSION: 1. Acute onset of diarrhea for the last 10 days' duration, most likely related to viral gastroenteritis. Symptoms are resolving. Since being in the hospital the diarrhea has significantly improved. Presently off motility agents. 2. Acute kidney injury with elevated BUN and creatinine. Nephrology is following the patient closely. RECOMMENDATIONS: 1. Continue renal diet. 2. Imodium as needed if he has significant diarrhea. 3. Discussed with the patient regarding endoscopic workup, and at this time he refuses to have anything done. I will follow with you closely. Thank you for this consultation. MMODL / IJN: [id number] /
[2020-01-26] MEDS: ATORVASTATIN 40 MG TAB PO SCH (21:32)
[2020-01-27] MEDS: clonazePAM 1 MG TAB PO PRN ×3 (00:01→23:01)
[2020-01-27] MEDS: HEPARIN SODIUM,PORCINE 5,000 UNIT/ML 1 ML VIAL SQ SCH ×4 (00:01→23:02)
[2020-01-27] MEDS: ONDANSETRON 4 MG/2 ML VIAL IVP SCH ×4 (00:02→23:01)
[2020-01-27] MEDS: LOPERAMIDE 2 MG CAP PO PRN (00:10)
[2020-01-27] MEDS: ISOSORBIDE MONONITRATE ER 60 MG TAB.ER.24H PO SCH (09:48)
[2020-01-27] MEDS: ASPIRIN 81 MG PO SCH (09:48)
[2020-01-27] MEDS: CARVEDILOL 12.5 MG TAB PO SCH ×2 (09:49→17:32)
[2020-01-27] MEDS: PANTOPRAZOLE 40 MG/10 ML VIAL IVP SCH (09:49)
[2020-01-27] MEDS: CLOPIDOGREL 75 MG TAB PO SCH (10:13)
[2020-01-27] MEDS: DEXTROSE 5% IN WATER 1,000 ML with SODIUM BICARB (1 MEQ/ML) 150 ML IV SCH (10:13)
[2020-01-27 10:14] LABS: Basophils % (A) 1 %; Eosinophils # (A) 0.4 k/uL (0-0.7); Eosinophils % (A) 4 %; HCT 33.3 % (39.0-53.0); HGB 10.8 gm/dL (13.0-17.5); Lymphocytes # (A) 1.2 k/uL (1.0-4.8); Lymphocytes % (A) 14 %; MCH 27.6 pg (25.0-35.0); MCHC 32.3 g/dL (31.0-37.0); MCV 85.4 fL (80.0-100.0); Mean Platelet Volume 8.4; Monocytes # (A) 0.4 k/uL (0-1.0); Monocytes % (A) 5 %; Neutrophils # (A) 6.4 k/uL (1.3-7.7); Neutrophils % (A) 75 %; Platelet Count 121 k/uL (150-450); RDW 14.1 % (11.5-15.5); WBC 8.5 k/uL (3.8-10.6)
[2020-01-27 10:42] LABS: Calcium 7.1 mg/dL (8.4-10.2); Potassium 3.8 mmol/L (3.5-5.1)
--- NOTE | 2020-01-27 11:30 | PN ---
PROGRESS NOTE Mr. Stiles is a 74-year-old male with a known history of coronary artery disease status post coronary artery bypass grafting who presented with nausea and vomiting and evidence of severe renal failure. He had elevation of his troponin. Patient declined any cardiac workup including an echocardiogram. He is feeling well this morning. He still has some diarrhea, although better. He denies any dizziness. No chest pain. He denies any palpitation. He denies any nausea. He continues to be on aspirin once a day, Lipitor 40 mg daily, Coreg 12.5 mg twice a day, isosorbide mononitrate 60 mg daily, and he is receiving sodium bicarb intravenously. PHYSICAL EXAMINATION: Blood pressure 115/60 with a heart rate in 60s. LUNGS: Clear. HEART: Regular rate and rhythm, S1, S2. No S3. No rub appreciated. ABDOMEN: Soft, nontender. EXTREMITIES: No edema. LAB DATA: None were done today. IMPRESSION: 1. Severe renal failure. 2. Non ST-segment elevation myocardial infarction. 3. Status post coronary artery bypass grafting. 4. Episode of supraventricular tachycardia, resolved. 5. Hypertension. 6. Hyperlipidemia. RECOMMENDATION: We will continue present therapy. I will follow his renal function closely. Increase his activity. Patient declined any cardiac workup. I will add Plavix to his regimen and follow his hemoglobin. Depending on his progress, further recommendations will be made. MMODL / IJN: [id number] /
--- NOTE | 2020-01-27 11:48 | P.PN ---
Subjective Progress Note Date: 01/27/20 Follow-up for acute kidney injury. Creatinine still high, heart couple of loose stools last night. Currently on a bicarbonate drip. Denies any nausea vomiting, uremic symptoms. 1175 ML's of urine output in the last 24 hours. Objective - Vital Signs Vital signs: Vital Signs Temp 98.4 F 01/27/20 08:00 Pulse 65 01/27/20 10:00 Resp 18 01/27/20 08:00 BP 145/73 01/27/20 08:00 Pulse Ox 97 01/27/20 08:00 Intake & Output 01/26/20 01/27/20 01/27/20 18:59 06:59 18:59 Intake Total 200 1600 550 Output Total 775 400 Balance -575 1200 550 Weight 71.6 kg Intake: IV 200 1600 550 Dextrose 5% in Water 1, 200 1600 550 000 ml @ 100 mls/hr IV . [id number] JORGE with Sodium Bicarb (1 Meq/ml) 150 ml Rx#:[id number] Output: Urine 475 400 Stool 300 Other: Voiding Method Toilet Toilet Urinal Urinal # Voids 1 # Bowel Movements 1 - Exam No acute distress S1-S2 heard Lungs clear Abdomen soft No edema - Labs CBC & Chem 7: 01/27/20 09:56 01/27/20 09:56 Labs: Abnormal Lab Results - Last 24 Hours (Table) 01/27/20 01/27/20 Range/Units 09:56 09:56 RBC 3.90 L (4.30-5.90) m/uL Hgb 10.8 L (13.0-17.5) gm/dL Hct 33.3 L (39.0-53.0) % Plt Count 121 L (150-450) k/uL Carbon Dioxide 31 H (22-30) mmol/L BUN 93 H (9-20) mg/dL Creatinine 8.96 H* (0.66-1.25) mg/dL Glucose 114 H (74-99) mg/dL Calcium 7.1 L (8.4-10.2) mg/dL Microbiology - Last 24 Hours (Table) 01/24/20 21:00 Stool Culture - Final Stool Assessment and Plan Assessment: #1 Nonoliguric acute kidney injury secondary to ischemic ATN with volume depletion. #2 metabolic alkalosis secondary to bicarb drip #3 hypertension #4 medullary nephrocalcinosis #5 non-STEMI Plan: #1 change bicarb drip to normal saline at 100 ML's an hour. #2 discussed about kidney biopsy and vasculitis screen to rule out other causes of acute kidney injury [based on the age] but patient refused for both. #3 no acute indication for renal replacement therapy at this time but he also refused for dialysis in future. #4 clinically looks depressed, might benefit from psychiatric evaluation and antidepressants. [Primary team to evaluate] #5 avoid nephrotoxic agents and hypotensive episodes
[2020-01-27] MEDS: SODIUM CHLORIDE 0.9% 1,000 ML IV SCH ×2 (11:58→21:10)
--- NOTE | 2020-01-27 14:30 | P.PN ---
Subjective Progress Note Date: 01/27/20 Principal diagnosis: SVT Patient was seen and examined. No acute events overnight. Patient is currently sinus rhythm. Creatinine slightly improving to 8.96. Troponin bumped up from 0.049-11.4. Patient denies any chest pain, shortness of breath or palpitations. Refusing any cardiac intervention including cardiac cath and echocardiogram. Patient appears alert and oriented 3 and is aware of the risks of refusing intervention. He is requesting to have his medical records manager visit which we will attempt to arrange as discussed with nursing. He denies any nausea or vomiting. He is willing to get vasculitis screening blood work tomorrow if there is any chance of his kidneys recover without dialysis. He is unsure whether he would want dialysis or not at this time. Objective - Vital Signs Vital signs: Vital Signs Temp 98.2 F 01/27/20 12:00 Pulse 57 L 01/27/20 12:00 Resp 13 01/27/20 12:00 BP 115/72 01/27/20 12:00 Pulse Ox 100 01/27/20 12:00 Intake & Output 01/26/20 01/27/20 01/27/20 18:59 06:59 18:59 Intake Total 200 1600 550 Output Total 775 400 400 Balance -575 1200 150 Weight 71.6 kg Intake: IV 200 1600 550 Dextrose 5% in Water 1, 200 1600 550 000 ml @ 100 mls/hr IV . [id number] JORGE with Sodium Bicarb (1 Meq/ml) 150 ml Rx#:[id number] Output: Urine 475 400 400 Stool 300 Other: Voiding Method Toilet Toilet Urinal Urinal # Voids 1 1 # Bowel Movements 1 - Exam General: [non toxic, cachectic], [no distress], [appears at stated age] Derm: [warm], [dry] Head: [atraumatic], [normocephalic], [symmetric] Eyes: [EOMI], [no lid lag], [anicteric sclera] Mouth: [no lip lesion], [mucus membranes moist] Cardiovascular: [S1S2 reg], [no murmur], [positive DP pulse bilateral], Lungs: [CTA bilateral], [no rhonchi, no rales] , [no accessory muscle use] Abdominal: [soft], [ nontender to palpation], [no guarding], [no appreciable org anomegaly] Ext: [no gross muscle atrophy], [no edema], [no contractures] Neuro: [no focal neuro deficits] Psych: [Alert], [oriented], [appropriate affect] - Labs CBC & Chem 7: 01/27/20 09:56 01/27/20 09:56 Labs: Abnormal Lab Results - Last 24 Hours (Table) 01/27/20 01/27/20 Range/Units 09:56 09:56 RBC 3.90 L (4.30-5.90) m/uL Hgb 10.8 L (13.0-17.5) gm/dL Hct 33.3 L (39.0-53.0) % Plt Count 121 L (150-450) k/uL Carbon Dioxide 31 H (22-30) mmol/L BUN 93 H (9-20) mg/dL Creatinine 8.96 H* (0.66-1.25) mg/dL Glucose 114 H (74-99) mg/dL Calcium 7.1 L (8.4-10.2) mg/dL Microbiology - Last 24 Hours (Table) 01/24/20 21:00 Stool Culture - Final Stool Assessment and Plan Assessment: Non-ST elevation [place] with history of CAD Acute kidney injury with metabolic alkalosis Depression Persistent nausea, vomiting and diarrhea Resolved: SVT, Leukocytosis Chronic conditions: hypertension and dyslipidemia Troponin is 0.094, 11.4. Non-ST elevation [place]. Plans: Telemetry monitoring. Co ntinue aspirin and Lipitor. Plavix started by Cardiology. Continue Coreg. Patient refusing echocardiogram and cardiac catheterization. Bicarbonate of 31. BUN is 93, creatinine 8.96. Likely prerenal given history of nausea, vomiting and diarrhea. 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 Plans: Avoid nephrotoxins. Renal diet. Repeat BMP tomorrow morning. Patient switched to normal saline due to alkalosis on bicarbonate drip. Follow vasculitis labs tomorrow. Follow nephrology recommendations. Patient with possible PTSD. It appears alert and oriented 3 but may be also clinically depressed. We will consult psychiatry for decision making capacity and possible evaluation for severe depression. Will attempt to bring in his medical records manager for mu-ism reasons. Symptoms have mostly resolved. Stool for lactoferrin negative. Plans: GI has been consulted for patient's persistent nausea vomiting and diarrhea. Stool culture, stool for Calprotectin. Zofran as needed for nausea or vomiting while monitoring QTC. Patient refusing any endoscopic procedures. His blood pressure is within normal limits on Coreg and Imdur. Lipitor has been restarted for dyslipidemia. [Patient with non-ST elevation [place], refusing intervention, maximized on medical therapy. Pending improvement for renal function, Vasculitis labs tomorrow. Requesting medical records manager for mu-ism reasons, moral support and decision making. Psyciatry consulted for decision making capacity and possible depression. Refusing endoscopy for persistent nausea vomiting and diarrhea though improving. He is pending clinical improvement. Likely DC in 1-2 days.]
--- NOTE | 2020-01-27 15:28 | PN ---
PROGRESS NOTE DATE OF SERVICE: 01/27/2020 The patient is a 74-year-old pleasant white male admitted to the hospital with acute onset of nausea, vomiting, diarrhea and acute kidney injury presently remains in the intensive care unit. Since being in the hospital, the nausea and vomiting has improved. On a regular diet, tolerating well. He had one loose bowel movement this morning. Stool studies so far have been negative. He denies any new symptoms. PHYSICAL EXAMINATION: Blood pressure is 115/72, pulse rate 57, temperature 98.2. HEENT examination unremarkable. Conjunctivae pink. Sclerae anicteric. Oral cavity, no lesions. NECK: No JVD or lymph node enlargement. CHEST: Clear to auscultation. HEART: Regular rate and rhythm. ABDOMEN: Soft. Bowel sounds are positive. No organomegaly. EXTREMITIES: No pedal edema. NEUROLOGIC: Alert and oriented x3. No focal deficits. LABS: WBC 8.4, hemoglobin 10.8, platelets 121. BUN is 93, creatinine 8.96. Troponin elevated at 11. Stool lactoferrin is negative. IMPRESSION: 1. Acute onset of nausea, vomiting, diarrhea of 10 day's duration. Symptoms resolving. Possible acute viral gastroenteritis, resolved. Stool studies so far have been negative. 2. Acute kidney injury with improving BUN and creatinine. 3. Elevated troponin. RECOMMENDATION: 1. Continue with symptomatic and supportive care. 2. Antiemetics as needed. 3. Advance diet as tolerated. 4. Continue Imodium as needed if she has any recurrent diarrhea. 5. Patient refuses to have any endoscopic intervention during this hospitalization. Thank you for this consultation. MMODL / IJN: [id number] /
[2020-01-27] MEDS: ATORVASTATIN 40 MG TAB PO SCH (20:26)
[2020-01-27] MEDS: PANTOPRAZOLE 40 MG TABLET PO SCH (20:26)
[2020-01-28 04:38] LABS: HCT 29.1 % (39.0-53.0); HGB 9.4 gm/dL (13.0-17.5); MCHC 32.3 g/dL (31.0-37.0); MCV 86.6 fL (80.0-100.0); Platelet Count 108 k/uL (150-450); RBC 3.36 m/uL (4.30-5.90); WBC 7.6 k/uL (3.8-10.6)
[2020-01-28 04:59] LABS: Calcium 6.5 mg/dL (8.4-10.2)
[2020-01-28] MEDS: CARVEDILOL 12.5 MG TAB PO SCH ×2 (06:25→16:33)
[2020-01-28] MEDS ORDERED: POTASSIUM CHLORIDE ER 20 MEQ TAB.ER PO SCH (08:00)
[2020-01-28] MEDS ORDERED: POTASSIUM BICARBONATE/CIT AC 20 MEQ TABLET.EFF PO ONE (09:00)
[2020-01-28] MEDS: HEPARIN SODIUM,PORCINE 5,000 UNIT/ML 1 ML VIAL SQ SCH ×3 (09:18→23:29)
[2020-01-28] MEDS: SODIUM CHLORIDE 0.9% 1,000 ML IV SCH ×2 (09:18→20:51)
[2020-01-28] MEDS: ONDANSETRON 4 MG/2 ML VIAL IVP SCH ×3 (09:18→23:29)
[2020-01-28] MEDS: ASPIRIN 81 MG PO SCH (09:19)
[2020-01-28] MEDS: CLOPIDOGREL 75 MG TAB PO SCH (09:19)
[2020-01-28] MEDS: ISOSORBIDE MONONITRATE ER 60 MG TAB.ER.24H PO SCH (09:19)
[2020-01-28] MEDS: PANTOPRAZOLE 40 MG TABLET PO SCH ×2 (09:19→20:50)
--- NOTE | 2020-01-28 09:22 | PN ---
PROGRESS NOTE Mr. Stiles is a 74-year-old male with a known history of coronary artery disease status post coronary artery bypass grafting who presented with severe nausea and vomiting and diarrhea with severe renal failure. He had troponin elevation consistent with non ST- segment elevation myocardial infarction. Patient declined any cardiac workup, declined the endoscopy as well as dialysis. He is feeling well overall. He has continued to be tired. He has no further nausea and vomiting or diarrhea. He continues to be in sinus mechanism. He had no chest pain. No dizziness. No palpitation. No syncope. He is tolerating his oral medication in the form of aspirin once a day, Lipitor 40 mg daily, Coreg 12.5 mg twice a day, Plavix 75 mg daily, isosorbide mononitrate 60 mg daily. PHYSICAL EXAMINATION: Blood pressure 122/60 with a heart rate in the 60s. LUNGS: Clear. HEART: Regular rate and rhythm, S1, S2. No S3. No rub. ABDOMEN: Soft, nontender. Positive bowel sounds. EXTREMITIES: No edema. LAB DATA: Revealed BUN and creatinine of 84 and 1.56. Potassium 3.0, hemoglobin of 9.4. IMPRESSION: 1. Status post non ST-segment elevation myocardial infarction, post coronary artery bypass grafting. The patient declined any cardiac workup including an echocardiogram. 2. Acute renal injury, improving. 3. Episode of supraventricular tachycardia, resolved. 4. Hypertension. 5. Hyperlipidemia. RECOMMENDATIONS: From the cardiac standpoint, we will continue present therapy, replace his potassium. Increase his activity. No further cardiac workup to be done at this time since the patient declined. MMODL / IJN: [id number] /
[2020-01-28] MEDS ORDERED: POTASSIUM CHLORIDE ER 20 MEQ TAB.ER PO STA (11:45)
--- NOTE | 2020-01-28 12:36 | P.PN ---
Subjective Progress Note Date: 01/28/20 Follow-up for acute kidney injury. Feels better today. No nausea vomiting or diarrhea. Urine output of 1400 ML's in the last 24 hours. Today he wants to talk about dialysis and biopsy. Objective - Vital Signs Vital signs: Vital Signs Temp 98.0 F 01/28/20 08:00 Pulse 70 01/28/20 08:00 Resp 21 01/28/20 08:00 BP 135/69 01/28/20 08:00 Pulse Ox 96 01/28/20 08:00 Intake & Output 01/27/20 01/28/20 01/28/20 18:59 06:59 18:59 Intake Total 1550 1500 Output Total 1250 200 150 Balance 300 1300 -150 Weight 73.6 kg Intake: IV 950 1100 Dextrose 5% in Water 1, 950 1100 000 ml @ 100 mls/hr IV . [id number] JORGE with Sodium Bicarb (1 Meq/ml) 150 ml Rx#:[id number] Intake, IV Titration 600 Amount Sodium Chloride 0.9% 1, 600 000 ml @ 100 mls/hr IV . Q10H JORGE Rx#:[id number] Oral 400 Output: Urine 1250 200 150 Other: Voiding Method Toilet Toilet Toilet Urinal Urinal Urinal # Voids 1 300 1 # Bowel Movements 1 - Exam No acute distress S1-S2 heard Lungs clear Abdomen soft No edema - Labs CBC & Chem 7: 01/28/20 03:40 01/28/20 03:40 Labs: Abnormal Lab Results - Last 24 Hours (Table) 01/28/20 01/28/20 Range/Units 03:40 03:40 RBC 3.36 L (4.30-5.90) m/uL Hgb 9.4 L (13.0-17.5) gm/dL Hct 29.1 L (39.0-53.0) % Plt Count 108 L (150-450) k/uL Potassium 3.0 L (3.5-5.1) mmol/L BUN 84 H (9-20) mg/dL Creatinine 8.56 H* (0.66-1.25) mg/dL Calcium 6.5 L (8.4-10.2) mg/dL Assessment and Plan Assessment: #1 Nonoliguric acute kidney injury secondary to ischemic ATN with volume depletion. #2 metabolic alkalosis secondary to bicarb drip, improving #3 hypertension #4 medullary nephrocalcinosis #5 non-STEMI Plan: #1 creatinine still high, improving. #2 vasculitis serology has been sent out today. #3 replace electrolytes. #4 no acute indication for renal replacement therapy today. #5 avoid nephrotoxic agents and hypotensive episodes. Discussed at length regarding biopsy [with recent NC currently on antiplatelets] hold biopsy at this time, follow-up on serology and repeat labs in a week and follow up in the clinic. Dialysis can be planned as outpatient based on the kidney function and symptoms in a week. Stable from nephrology point of view to be discharged, explained the importance of follow-up in a week and RN was present at the time of discussion.
--- NOTE | 2020-01-28 13:00 | PN ---
PROGRESS NOTE DATE OF SERVICE: 01/28/2020 The patient is a 74-year-old pleasant white male admitted to the hospital with severe nausea, vomiting, diarrhea and acute kidney injury. Remains in the intensive care unit. He is doing well in regards to his digestive issues. No nausea. Vomiting has resolved. On a regular diet, tolerating well. No further episodes of diarrhea for the last 24 hours. PHYSICAL EXAMINATION: Appears comfortable, no apparent distress. Vital signs stable. Blood pressure 122/63, pulse rate 58, temperature 98.3. HEENT examination unremarkable. Conjunctivae pink. Sclerae anicteric. Oral cavity, no lesions. NECK: No JVD or lymph node enlargement. CHEST: Clear to auscultation. HEART: Regular rate and rhythm. ABDOMEN: Soft. Bowel sounds are positive. No organomegaly. EXTREMITIES: No pedal edema. NEUROLOGIC: Alert and oriented x3. No focal deficits. LABS: WBC 7.6, hemoglobin 9.4 platelets 108, BUN 84, creatinine 8.56. IMPRESSION: 1. Acute onset of nausea, vomiting and diarrhea, completely resolved. Patient doing well. Stool studies have been negative. 2. Acute kidney injury with significant elevated BUN and creatinine. Mild improvement with aggressive IV hydration. Nephrology following the patient closely. RECOMMENDATIONS: 1. Continue with symptomatic and supportive care. 2. Since his nausea, vomiting, and diarrhea have completely resolved, no recommendations at this time. I discussed with the patient EGD and colonoscopy on outpatient basis and he is not interested during this hospitalization. We will sign off at this time. Please call us if needed. Thank you for this consultation. MMODL / IJN: [id number] /
--- NOTE | 2020-01-28 13:12 | P.CN ---
Psychiatric Consult - . 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 HISTORY OF PRESENT ILLNESS: The patient presented to the hospital initially for nausea vomiting diarrhea for approximately 10 days according to ER report. Patient also complained at the time of poor by mouth intake. He was admitted to the hospital for acute renal failure elevated lipase and was found to have elevated troponins. Patient was given IV fluids and labs have gradually been recovering. Psychiatry is consulted for depression and decision-making capacity. Patient apparently has been refusing cardiac interventions including cardiac cath and echocardiogram as recommended by the medical team. Patient was seen this afternoon at the bedside and patient spoke about his history of PTSD and his tour in [place] as he is a at this time. He spoke about his brother and daughter being close and supportive to him. He also spoke about his currently going through chemotherapy. He states that he has been dealing with anxiety and mild depression for years and states that he is on Klonopin which is helping him greatly. 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 Patient is agreeable to these tests at this time. We did also speak about patient's cardiac condition and he states that he has had "so many echoes and even a cath in the past" and states that at this time he is clear about not wanting any kind of intervention related to his heart. Patient explains that he understands the risks that he could possibly and that his heart can worsen if he does not undergo these tests. He states that he is taking his medications and generally follows doctor's advice. He claims at the moment that his mood is "worried" and states that his sleep is about 2-3 hours a night and denies any nightmares. At this time patient denies any suicidal or homical ideations, intent or plan. Patient denies any auditory, visual hallucinations and denies any paranoia or delusions. Patients admits to using. No recreational substances and claims that he quit cigarettes 2 years ago. Patient has for the most part future oriented and claims that he wants to live for his family. PAST PSYCHIATRIC HISTORY: Patient has a a history of depression and PTSD. Patient is currently on Klonopin 1 mg twice a day when necessary for anxiety. He claims that he has been on other medications for his mood in the past however at this time does not want to be on any other medications. Patient denies any previous psychiatric hospitalizations. Patient claims that he follows up with the nurse practitioner at the [facility] through tele-psychiatry. Patient denies any history of suicide attempts in the past. PAST MEDICAL HISTORY: Coronary artery disease, hyperlipidemia, hypertension. Patient has a history of a triple bypass surgery. ALLERGIES: as per EMR. CHEMICAL DEPENDENCY HISTORY: as per HPI. FAMILY PSYCHIATRIC/SUBSTANCE USE HISTORY: denies SOCIAL HISTORY: Patient was born and raised in [place] [facility] and claims that he currently lives in [facility]. 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 He claims that he is a [place] and served from [id number] in the [employer]. He denies any legal history. He claims that he completed high school and did some college while he was in the . MENTAL STATUS EXAM: General Appearance: Patient appears to be stated age is alert, pleasant, and cooperative. Patient appears to have fair hygiene and grooming wearing hospital gown with fair eye contact. Behavior: Patient is calmly lying in bed without any agitated behavior. Speech: Patient's speech is fluent and nonpressured. Mood/Affect: Patient reports their mood is "worried", affect is congruent Suicidality/Homicidality: Patient denies having any suicidal or homicidal ideation intent or plan. Perceptions: Patient denies any visual hallucinations and denies any auditory hallucinations Though content/process: There is no evidence of any delusional thought content and thought process is linear and goal-directed. Future oriented. Memory and concentration: AOX3, grossly intact for the purposes of this session. Can spell "WORLD" backwards Judgment and insight: Fair IMPRESSIONS: Depressive disorder unspecified History of PTSD PLAN: -At this time patient DOES NOT meet criteria for inpatient psychiatric admission. -Patient DOES have decision making capacity at this time and is able to reason through and communicate/appreciate the risks, benefits and alternatives to treatment and also to the tests which she is currently refusing/declining. Cordell maza clearly communicated that he understands the risks of possible if he does not undergo the cardiac diagnostic tests. -Would recommend the following medication changes/additions: Can continue with current medications as prescribed. I spoke with patient in depth about antidepressant medications and also trazodone which she was previously on however at this time patient is declining these medications and would currently like to remain on Klonopin 1 mg twice a day as needed for anxiety. -Patient can continue to follow up with his nurse practitioner at the [facility] and also patient will be following up with nephrology for further testing of his kidneys and to evaluate need for possible hemodialysis. Patient is also agreeable to follow up with his primary care doctor and outpatient interviewing clerk. -Psychiatry will sign off at this point, please contact with any questions.
--- NOTE | 2020-01-28 14:29 | P.PN ---
Subjective Progress Note Date: 01/28/20 Principal diagnosis: SVT Patient was seen and examined. No acute events overnight. Patient is currently sinus rhythm. Creatinine slightly improving to 8.56. Troponin bumped up from 0.049-11.4. Patient denies any chest pain, shortness of breath or palpitations. Refusing any cardiac intervention including cardiac cath and echocardiogram. Patient appears alert and oriented 3 and is aware of the risks of refusing intervention. Psychiatry has been consulted and has deemed the patient competent to make decisions. Patient reports good urine output, over 1200 mL in the past 24 hours. Patient states that he is unsure about dialysis at this time and would need some time to think about it. Objective - Vital Signs Vital signs: Vital Signs Temp 98.0 F 01/28/20 08:00 Pulse 70 01/28/20 08:00 Resp 21 01/28/20 08:00 BP 135/69 01/28/20 08:00 Pulse Ox 96 01/28/20 08:00 Intake & Output 01/27/20 01/28/20 01/28/20 18:59 06:59 18:59 Intake Total 1550 1500 Output Total 1250 200 150 Balance 300 1300 -150 Weight 73.6 kg Intake: IV 950 1100 Dextrose 5% in Water 1, 950 1100 000 ml @ 100 mls/hr IV . [id number] JORGE with Sodium Bicarb (1 Meq/ml) 150 ml Rx#:[id number] Intake, IV Titration 600 Amount Sodium Chloride 0.9% 1, 600 000 ml @ 100 mls/hr IV . Q10H JROGE Rx#:[id number] Oral 400 Output: Urine 1250 200 150 Other: Voiding Method Toilet Toilet Toilet Urinal Urinal Urinal # Voids 1 300 1 # Bowel Movements 1 - Exam General: [non toxic, cachectic], [no distress], [appears at stated age] Derm: [warm], [dry] Head: [atraumatic], [normocephalic], [symmetric] Eyes: [EOMI], [no lid lag], [anicteric sclera] Mouth: [no lip lesion], [mucus membranes moist] Cardiovascular: [S1S2 reg], [no murmur], [positive DP pulse bilateral], Lungs: [CTA bilateral], [no rhonchi, no rales] , [no accessory muscle use] Abdominal: [soft], [ nontender to palpation], [no guarding], [no appreciable organomegaly] Ext: [no gross muscle atrophy], [no edema], [no contractures] Neuro: [no focal neuro deficits] Psych: [Alert], [oriented], [appropriate affect] - Labs CBC & Chem 7: 01/28/20 03:40 01/28/20 13:40 Labs: Abnormal Lab Results - Last 24 Hours (Table) 01/28/20 01/28/20 Range/Units 03:40 03:40 RBC 3.36 L (4.30-5.90) m/uL Hgb 9.4 L (13.0-17.5) gm/dL Hct 29.1 L (39.0-53.0) % Plt Count 108 L (150-450) k/uL Potassium 3.0 L (3.5-5.1) mmol/L BUN 84 H (9-20) mg/dL Creatinine 8.56 H* (0.66-1.25) mg/dL Calcium 6.5 L (8.4-10.2) mg/dL Assessment and Plan Assessment: Non-ST elevation [place] with history of CAD Acute kidney injury Hypokalemia Depression Persistent nausea, vomiting and diarrhea Resolved: SVT, Leukocytosis Chronic conditions: hypertension and dyslipidemia Troponin is 0.094, 11.4. Non-ST elevation [place]. Plans: Telemetry monitoring. Continue aspirin and Lipitor. Plavix started by Cardiology. Continue Coreg. Patient refusing echocardiogram and cardiac catheterization. BUN is 84, creatinine 8.56. Likely prerenal given history of nausea, vomiting and diarrhea. 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 Plans: Avoid nephrotoxins. Renal diet. Repeat BMP tomorrow morning. Patient continued on normal saline. Vasculitis labs ordered, can follow in the outpatient setting for results. At this point, patient does not need urgent dialysis and can follow up with his PCP and nephrology in the outpatient setting for serial renal function monitoring and possible dialysis in the future. Most recent potassium is 3. His potassium will be replaced via protocol. Plans: Repeat BMP tomorrow morning. Given his recent bout of SVT, we will replace and check electrolytes in the morning including potassium and magnesium. Patient with possible PTSD. It appears alert and oriented 3 but may be also clinically depressed. Plans: Psychiatry has deemed the patient competent to make medical decisions. Symptoms have mostly resolved. Stool for lactoferrin negative. Plans: GI has been consulted for patient's persistent nausea vomiting and diarrhea. Stool culture, stool for Calprotectin. Zofran as needed for nausea or vomiting while monitoring QTC. Patient refusing any endoscopic procedures. His symptoms have significantly improved since admission. His blood pressure is within normal limits on Coreg and Imdur. Lipitor has been restarted for dyslipidemia. [Patient with non-ST elevation [place], refusing intervention, maximized on medical therapy. Pending improvement for renal function, Vasculitis labs are pending. Hypokalemic replaced via protocol plan is to recheck K tomorrow. Refusing endoscopy for persistent nausea vomiting and diarrhea though improving. We will plan on discharging the patient home with adequate follow-up with PCP and nephrology in the outpatient setting. Will also need to follow-up with cardiology. DC tomorrow if patient continues to progress well and electrolytes are stable.]
[2020-01-28] MEDS ORDERED: POTASSIUM BICARBONATE/CIT AC 20 MEQ TABLET.EFF PO STA (16:27)
[2020-01-28] MEDS: clonazePAM 1 MG TAB PO PRN ×2 (16:33→23:29)
[2020-01-28] MEDS: ATORVASTATIN 40 MG TAB PO SCH (20:50)
[2020-01-29 05:28] LABS: Basophils % (A) 1 %; Eosinophils # (A) 0.4 k/uL (0-0.7); Eosinophils % (A) 5 %; HCT 29.1 % (39.0-53.0); HGB 9.7 gm/dL (13.0-17.5); Lymphocytes # (A) 1.5 k/uL (1.0-4.8); Lymphocytes % (A) 20 %; MCH 29.1 pg (25.0-35.0); MCHC 33.2 g/dL (31.0-37.0); MCV 87.5 fL (80.0-100.0); Mean Platelet Volume 7.8; Monocytes # (A) 0.4 k/uL (0-1.0); Monocytes % (A) 5 %; Neutrophils # (A) 5.2 k/uL (1.3-7.7); Neutrophils % (A) 69 %; Platelet Count 100 k/uL (150-450); RBC 3.32 m/uL (4.30-5.90); RDW 13.8 % (11.5-15.5); WBC 7.6 k/uL (3.8-10.6)
[2020-01-29] MEDS: SODIUM CHLORIDE 0.9% 1,000 ML IV SCH (06:08)
[2020-01-29] MEDS: CARVEDILOL 12.5 MG TAB PO SCH (06:08)
[2020-01-29 07:13] LABS: Potassium 3.7 mmol/L (3.5-5.1)
[2020-01-29 07:27] LABS: Calcium 6.3 mg/dL (8.4-10.2)
[2020-01-29] MEDS: ASPIRIN 81 MG PO SCH (09:30)
[2020-01-29] MEDS: CLOPIDOGREL 75 MG TAB PO SCH (09:30)
[2020-01-29] MEDS: clonazePAM 1 MG TAB PO PRN (09:30)
[2020-01-29] MEDS: ISOSORBIDE MONONITRATE ER 60 MG TAB.ER.24H PO SCH (09:30)
[2020-01-29] MEDS: PANTOPRAZOLE 40 MG TABLET PO SCH (09:30)
[2020-01-29] MEDS: HEPARIN SODIUM,PORCINE 5,000 UNIT/ML 1 ML VIAL SQ SCH (09:31)
[2020-01-29] MEDS: LOPERAMIDE 2 MG CAP PO PRN (09:31)
[2020-01-29] MEDS: ONDANSETRON 4 MG/2 ML VIAL IVP SCH (09:31)
--- NOTE | 2020-01-29 11:08 | PN ---
PROGRESS NOTE Mr. Stiles is a 74-year-old male with a history of coronary artery disease, status post coronary artery bypass grafting, history of hypertension, hyperlipidemia, who presented with severe nausea and vomiting and diarrhea with severe renal failure, has evidence of non ST-segment elevation myocardial infarction. Patient declined any cardiac testing including echocardiogram. He is doing well this morning. His diarrhea is gone. He denies any symptoms of chest pain. He denies any dizziness or palpitation. He denies any nausea. He denies any cough or fever. He continues to be on aspirin once a day, Lipitor 40 mg daily, Coreg 12.5 mg twice a day, Plavix 75 mg daily. PHYSICAL EXAMINATION: Blood pressure 124/70 with a heart rate in the 50s. LUNGS: Clear. HEART: Regular rate and rhythm, S1, S2. No S3. No rub. ABDOMEN: Soft, nontender. EXTREMITIES: No edema. LAB DATA: Revealed BUN and creatinine 77 and point a 8.26, potassium 3.7, hemoglobin of 9.7. IMPRESSION: 1. Status post non ST-segment elevation myocardial infarction with no recurrent angina. The patient has declined any cardiac workup. 2. Renal failure. 3. Status post coronary artery bypass grafting. 4. History of severe hypertension. 5. Hyperlipidemia. 6. Supraventricular tachyarrhythmia, resolved. RECOMMENDATION: From the cardiac standpoint, will continue present therapy. Patient has declined dialysis as well declined the GI workup as well. Will continue present therapy. Depending on his progress, further recommendation will be made. MMODL / IJN: [id number] /
[2020-01-29 11:26] LABS: Protein, Total 4.9 g/dL (6.2-8.2)
[2020-01-29 11:58] VITALS: BP 114/56; PULSE 59; RESP 18; TEMP 98.2
--- NOTE | 2020-01-29 12:30 | P.DS ---
Providers Date of admission: 01/24/20 19:00 Expected date of discharge: 01/29/20 Attending physician: Henok Joshi MD Consults: 01/24/20 19:07 Consult Physician Routine Consulting Provider: Jean Paul Dorantes Consult Reason/Comments: Acute renal failure Do you want consulting provider notified?: Yes 01/25/20 07:31 Consult Physician Stat Consulting Provider: [facility] Consult Reason/Comments: tachycardia Do you want consulting provider notified?: Yes 01/27/20 14:26 Consult Physician Routine Consulting Provider: Tian Carrera Consult Reason/Comments: Depression possible and decision making capacity Do you want consulting provider notified?: Yes Primary care physician: [facility] Course: Patient is a 74-year-old male with a PMH of coronary artery disease, hypertension, and hyperlipidemia who presented to the ED with complaints of ongoing persistent nausea, vomiting, and diarrhea. The patient reports that for the past 1-2 weeks, he has had the above symptoms and they have been gradually worsening. He reports having 5-6 bowel movements in the past 24 hours with 2-3 episodes of nonbloody and nonbilious emesis. He reports that due to his symptoms, he has been unable to drink or eat much and feels as though he is getting dehydrated. He notes continued production of urine without any changes. Further denied abdominal pain, sick contacts, recent travel. Denied chest pain, shortness of breath, fever, chills, or cough. The patient underwent an extensive evaluation in the emergency room with KUB x-ray unremarkable, laboratory evaluation showing WBC 12.9, hemoglobin 12.5, sodium 139, potassium 4.4, BUN 112, creatinine 10.83, lipase 448, C. diff negative, and CO2 13. Patient was noted to be in SVT on day one of admission. He received 1 L bolus and was transferred to ICU for further monitoring. His magnesium was 1.9 and potassium was 5. His SVT terminated without any further intervention. Troponins were trended which went up from 0.094 to 11.4. Patient was started on aspirin, Lipitor and Plavix. He was continued on Coreg. Cardiology recommended echocardiogram and cardiac catheterization. Patient refused both interventions and any further cardiac workup. Nephrology was consulted for his elevated creatinine. He was initially started on normal saline for hydration which was switched to isotonic bicarbonate drip due to acidosis. His creatinine at the time of admission was 10.83 and his creatinine at the time of discharge was 8.26. 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 Psychiatry was consulted for possible depression and decision making capacity. Psychiatry deemed the patient capable of making his own decisions. With regard to his nausea, vomiting and diarrhea, GI was consulted. Stool for lactoferrin was negative. Patient refused any endoscopic procedures. Patient was seen and examined. No acute events overnight. Patient reports one loose stool this morning. He denies any chest pain, shortness breath or palpitations. No nausea or vomiting. No fever or chills. General: [non toxic, cachectic], [no distress], [appears at stated age] Derm: [warm], [dry] Head: [atraumatic], [normocephalic], [symmetric] Eyes: [EOMI], [no lid lag], [anicteric sclera] Mouth: [no lip lesion], [mucus membranes moist] Cardiovascular: [S1S2 reg], [no murmur], [positive DP pulse bilateral], Lungs: [CTA bilateral], [no rhonchi, no rales] , [no accessory muscle use] Abdominal: [soft], [ nontender to palpation], [no guarding], [no appreciable organomegaly] Ext: [no gross muscle atrophy], [no edema], [no contractures] Neuro: [no focal neuro deficits] Psych: [Alert], [oriented], [appropriate affect] Non-ST elevation PA with history of CAD Acute kidney injury Hypocalcemia Depression Persistent nausea, vomiting and diarrhea Resolved: SVT, Leukocytosis Chronic conditions: hypertension and dyslipidemia, hypokalemia Troponin is 0.094, 11.4. Non-ST elevation PA. Plans: Telemetry monitoring. Continue aspirin and Lipitor. Plavix started by Cardiology. Continue Coreg. Patient refusing echocardiogram and cardiac catheterization. BUN is 77, creatinine 8.26. Likely prerenal given history of nausea, vomiting and diarrhea. 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 Plans: Avoid nephrotoxins. Renal diet. Repeat BMP tomorrow morning. Patient continued on normal saline. Vasculitis labs ordered, can follow in the outpatient setting for results. At this point, patient does not need urgent dialysis and can follow up with his PCP and nephrology in the outpatient setting for serial renal function monitoring and possible dialysis in the future. Calcium 6.3, 7.4 with correction of albumin. Plans: Discussed with Dr. Palmer, start Tums, to follow PTH and vitamin D in the outpatient setting. Patient with possible PTSD. It appears alert and oriented 3 but may be also clinically depressed. Plans: Psychiatry has deemed the patient competent to make medical decisions. Symptoms have mostly resolved. Stool for lactoferrin negative. Plans: GI has been consulted for patient's persistent nausea vomiting and diarrhea. Stool culture, stool for Calprotectin. Zofran as needed for nausea or vomiting while monitoring QTC. Patient refusing any endoscopic procedures. His symptoms have significantly improved since admission. Continue Immodium at home. His blood pressure is within normal limits on Coreg and Imdur. Lipitor has been restarted for dyslipidemia. [Patient with non-ST elevation PA, refusing intervention, maximized on medical therapy. Pending improvement for renal function, Vasculitis labs are pending, to follow Nephrology and PCP in the outpatient setting, repeat BMP in 3 days. Hypokalemic replaced via protocol, within normal limits today. Refusing endoscopy for persistent nausea vomiting and diarrhea though improving. We will plan on discharging the patient home with adequate follow-up with PCP and nephrology in the outpatient setting. Will also need to follow-up with cardiology. DC today. This complex DC took 45 minutes to complete.] Pertinent Studies: Kidney Bladder US Patient Condition at Discharge: Stable Plan - Discharge Summary Discharge Rx Participant: Yes New Discharge Prescriptions: New Loperamide [Imodium] 2 mg PO QID PRN #14 cap PRN Reason: Diarrhea Atorvastatin [Lipitor] 40 mg PO HS #30 tab Clopidogrel [Plavix] 75 mg PO DAILY #30 tab Pantoprazole [Protonix] 40 mg PO DAILY #30 tablet. Calcium Carbonate [Tums] 1,000 mg PO DAILY #30 chewable Continue traZODone HCL 150 mg PO HS Mirtazapine [Remeron] 45 mg PO HS clonazePAM 1 mg PO BID PRN PRN Reason: Anxiety Isosorbide Mononitrate ER [Imdur] 60 mg PO DAILY Carvedilol [Coreg] 12.5 mg PO DAILY Aspirin EC [Ecotrin Low Dose] 81 mg PO BID Discontinued Carvedilol [Coreg] 25 mg PO HS Atorvastatin [Lipitor] 10 mg PO HS Discharge Medication List Aspirin EC [Ecotrin Low Dose] 81 mg PO BID 01/24/20 [History] Carvedilol [Coreg] 12.5 mg PO DAILY 01/24/20 [History] Isosorbide Mononitrate ER [Imdur] 60 mg PO DAILY 01/24/20 [History] Mirtazapine [Remeron] 45 mg PO HS 01/24/20 [History] clonazePAM 1 mg PO BID PRN 01/24/20 [History] traZODone HCL 150 mg PO HS 01/24/20 [History] Atorvastatin [Lipitor] 40 mg PO HS #30 tab 01/29/20 [Rx] Calcium Carbonate [Tums] 1,000 mg PO DAILY #30 chewable 01/29/20 [Rx] Clopidogrel [Plavix] 75 mg PO DAILY #30 tab 01/29/20 [Rx] Loperamide [Imodium] 2 mg PO QID PRN #14 cap 01/29/20 [Rx] Pantoprazole [Protonix] 40 mg PO DAILY #30 tablet. 01/29/20 [Rx] Follow up Appointment(s)/Referral(s): Paula Palmer MD [STAFF PHYSICIAN] - 1 Week (Office is waiting on [facility] referral, they will call you within a day or two to schedule your appointment. Please have your labs drawn and faxed to office prior to appointment.) Salo Brown MD [STAFF PHYSICIAN] - 02/07/20 3:45 pm [facility], [NON-STAFF] - Hemanth Christian DO [Primary Care Provider] - 1-2 days (Dr Christian's office will not see anyone in office for one month post hospital stay) [facility],Clinic [REFERRING] - 02/01/20 8:30 am (With Ernesto labwork to be completed) Ambulatory/Diagnostic Orders: Basic Metabolic Panel [LAB.AMB] Time Frame: 3 Days, Location: None Selected Patient Instructions/Handouts: Chronic Kidney Disease (DC), Dialysis Diet (DC) Activity/Diet/Wound Care/Special Instructions: Diet: Renal Follow-up with PCP within 2 days of discharge. Repeat BMP in 3 days. Your PCP can order this test. Follow-up results with PCP. Take all medications as advised. Follow-up with cardiology within 1 week. Follow-up with nephrology within 1 week. Come back to the ED or call 911 for worsening chest pain, shortness breath, palpitations or dizziness. Discharge Disposition: HOME SELF-CARE
[2020-01-29 12:38] LABS: Complement C3 69.1 mg/dL (80.0-207.0); Free Kappa Lt Chain Qnt, Serum 9.42 mg/dL (0.33-1.94)
[2020-01-29 13:13] LABS: Anti-Glomerular Basement Memb 7 UNITS (0-20)
[2020-01-29 14:51] LABS: C-ANCA <1:20 Titer (<1:20)
[2020-01-29 15:03] LABS: DNA Double-Stranded NEGATIVE (NEGATIVE)
--- NOTE | 2020-01-29 16:51 | PN ---
PROGRESS NOTE Patient is seen for followup for advanced renal failure, most likely acute on top of chronic. I was able to obtain labs from May of 2019 and patient's creatinine was 2.0 at that time. He denies having seen a business education teacher and he states that he has not been seeing his physician on a regular basis. This morning, patient states that he did have a loose bowel movement again. However, he is still considering going home. He denies nausea and vomiting and has been eating fairly okay. The plan was to start renal replacement therapy as outpatient as long as the patient continued to feel fairly well. His creatinine remains elevated at 8; however, it is down to 8.26 from 8.56 yesterday. Initial creatinine was 10.83. The patient has had good urine output. PHYSICAL EXAMINATION: Today blood pressure was 135/66, heart rate 67 per minute, he is afebrile. Examination of the heart S1, S2. Examination of the lungs, bilateral breath sounds are heard. Abdomen is soft, nontender. Examination of the lower extremities shows no significant edema. OFFSET PRESSMAN exam grossly intact. LABS: Show sodium 140, potassium 3.7, chloride 107, CO2 is 23. BUN 77, creatinine 8.26, hemoglobin 9.7 g/dL. ASSESSMENT: 1. Advanced renal failure, most likely component of acute on top of chronic. Previous creatinine 2.0 in May of 2019. Currently patient does not have any gross uremic symptoms and he would like to wait to start dialysis as outpatient. He has good urine output. Serum creatinine is actually slightly lower. Patient is advised that it is fine for him to wait and we will see him in the office for followup in about one week's time. However, if he develops any ongoing nausea or vomiting or increased fatigue or decreased urine output, he should contact us immediately. 2. Qpc-SN-rimrcyrjo myocardial infarction. 3. Hypertension. 4. Metabolic alkalosis associated with bicarb administration, now improved. 5. Diarrhea. Clostridium difficile toxin was negative. PLAN: Followup in the office as outpatient in 1 week's time. Check BMP as outpatient. Check vitamin D if not done as calcium is on the lower side. MMODL / IJN: [id number] /
[2020-01-30 10:41] LABS: Gamma Globulin 0.74 g/dL (0.70-1.50)
== END 2020-01-29 14:45 | disposition home health service (06) | DRG 682 ==
LOC: EC 17:30 → 4SSUR 19:00 → 2SICU 01-25 07:42 → 3SCARD 01-29 06:08
PROVIDERS: ADMIT Family Medicine; ATTEND Family Medicine
DX: N17.0 Acute kidney failure with tubular necrosis (principal); I21.4 Non-ST elevation (NSTEMI) myocardial infarction; E87.2 Acidosis; I47.2 Ventricular tachycardia; I47.1 Supraventricular tachycardia; I95.9 Hypotension, unspecified; E87.8 Other disorders of electrolyte and fluid balance, not elsewhere classified; E83.59 Other disorders of calcium metabolism; N29 Other disorders of kidney and ureter in diseases classified elsewhere; Z91.15 Patient's noncompliance with renal dialysis; Z66 Do not resuscitate; Z20.828 Contact with and (suspected) exposure to other viral communicable diseases; A08.4 Viral intestinal infection, unspecified; E87.6 Hypokalemia; F43.21 Adjustment disorder with depressed mood; F32.9 Major depressive disorder, single episode, unspecified; E86.0 Dehydration; D72.829 Elevated white blood cell count, unspecified; E78.5 Hyperlipidemia, unspecified; I10 Essential (primary) hypertension; F43.10 Post-traumatic stress disorder, unspecified; I25.10 Atherosclerotic heart disease of native coronary artery without angina pectoris; Z79.82 Long term (current) use of aspirin; Z79.899 Other long term (current) drug therapy; Z95.1 Presence of aortocoronary bypass graft; Z87.891 Personal history of nicotine dependence; Z96.60 Presence of unspecified orthopedic joint implant; Z88.7 Allergy status to serum and vaccine; Z88.8 Allergy status to other drugs, medicaments and biological substances; Z91.048 Other nonmedicinal substance allergy status
CPT/HCPCS: 36415; 74018; 76770; 80048; 80053; 81001; 82040; 82150; 82306; 82550; 82553; 82652; 83516; 83605; 83630; 83690; 83735; 83883; 83970; 83993; 84100; 84132; 84165; 84484; 85025; 85027; 85652; 86038; 86140; 86160; 86225; 86255; 87045; 87046; 87086; 87324; 93005; 96361; 96374; 99285